=== PATIENT | male | born 1935 | race Caucasian/White ===

== ENCOUNTER 2016-11-08 07:00 | Inpatient (IN) | payer MEDICARE, OTHER ==
[~2016-11-08] VITALS: Ht 180.3 cm; Wt 84.5 kg
[~2016-11-08 07:00] MED LIST: AMLO1TAB12; CRES10; FENO145T25; NARCO; NEURONTIN PO
[2016-11-29 08:43] VITALS: BMI 26.1
[2016-11-30] VITALS (29 sets, daily range): BP systolic 111–154; BP diastolic 55–76; PULSE 43–95; RESP 13–20; Ht 180.3 cm; Wt 84.5 kg
[2016-11-30] MEDS ORDERED: HIP PAIN COCKTAIL VANCO INJ SCH ×14 (05:30→07:00)
[2016-11-30] MEDS ORDERED: ATOR20TA38 PO (05:38)
[2016-11-30] MEDS ORDERED: DUR75P TD (05:38)
[2016-11-30] MEDS ORDERED: ZOLP5TAB PO (05:38)
[2016-11-30] MEDS ORDERED: VALS160T20 PO (05:38)
[2016-11-30] MEDS ORDERED: LACTATED RINGER'S 1,000 ML IV* SCH (06:00)
[2016-11-30] MEDS ORDERED: ACETAMINOPHEN 1000MG/100ML IV 100 ML IVPB ONE (06:00)
[2016-11-30] MEDS ORDERED: CELECOXIB 200 MG CAP PO ONE (06:00)
[2016-11-30] MEDS ORDERED: oxyCODONE (CR) 10 MG TAB [oxyCONTIN] PO ONE (06:00)
[2016-11-30] MEDS ORDERED: ONDANSETRON 4 MG INJ IV ONE (06:00)
[2016-11-30] MEDS ORDERED: DEXAMETHASONE 4 MG/ML 1 ML INJ IV ONE (06:00)
[2016-11-30] MEDS ORDERED: LANSOPRAZOLE 30 MG CAP PO ONE (06:00)
[2016-11-30] MEDS ORDERED: VANCOMYCIN 1 GM (PMX) 250 ML IVPB ONE (06:00)
[2016-11-30] MEDS ORDERED: TRANEXAMIC ACID IVPB ONE (06:00)
[2016-11-30] MEDS ORDERED: SOD CHLORIDE 0.9% IVPB ONE (06:00)
[2016-11-30] MEDS ORDERED: LIDOCAINE 2% (SDV) 5 ML INJ ONE (06:15)
[2016-11-30] MEDS ORDERED: NEOSTIGMINE 3 MG/3 ML SYRINGE ONE (06:15)
[2016-11-30] MEDS ORDERED: ROCURONIUM 50 MG INJ ONE (06:15)
[2016-11-30] MEDS ORDERED: GLYCOPYRROLATE 0.4 MG INJ ONE (06:15)
[2016-11-30] MEDS ORDERED: PROPOFOL 20 ML ONE (06:15)
[2016-11-30] MEDS ORDERED: MIDAZOLAM 1 MG/ML 2 ML INJ ONE (06:16)
[2016-11-30] MEDS ORDERED: FENTAnyl 50 MCG/ML VIAL ONE (06:16)
[2016-11-30] MEDS ORDERED: LIDOCAINE 2%/EPI 30 ML INJ ONE (06:19)
[2016-11-30] MEDS ORDERED: FENTAnyl 50 MCG/ML VIAL IV PRN ×2 (06:30)
[2016-11-30] MEDS ORDERED: LABETALOL HCL 20MG INJ IV PRN (06:30)
[2016-11-30] MEDS ORDERED: OXYCODONE/ACETAMINOPHEN (5/325) TAB PO PRN ×2 (06:30)
[2016-11-30] MEDS ORDERED: MIDAZOLAM 1 MG/ML 2 ML INJ IV PRN (06:30)
[2016-11-30] MEDS ORDERED: morphine (1 MG/ML) 10ML SYRINGE IV PRN ×3 (06:30)
[2016-11-30] MEDS ORDERED: MEPERIDINE 25 MG INJ IV PRN (06:30)
[2016-11-30] MEDS ORDERED: HYDROmorphONE (0.2 MG/ML) 10ML SYG IV PRN ×3 (06:30)
[2016-11-30] MEDS ORDERED: ONDANSETRON 4 MG INJ IV PRN (06:30)
[2016-11-30] MEDS ORDERED: ATROPINE 1 MG/10 ML SYRINGE IV PRN (06:30)
[2016-11-30] MEDS ORDERED: DIPHENHYDRAMINE 50 MG INJ IV PRN (06:30)
[2016-11-30] MEDS ORDERED: EPHEDrine SULFATE 50 MG/5 ML SYG IV PRN (06:30)
[2016-11-30] MEDS ORDERED: hydrALAzine 20 MG INJ IV PRN (06:30)
[2016-11-30] MEDS ORDERED: BACITRACIN 50000 UNITS INJ ONE (06:41)
[2016-11-30] MEDS ORDERED: TOBRAMYCIN 1.2 GM POWDER ONE (06:48)
[2016-11-30] MEDS ORDERED: BUPIVACAINE 0.25%/EPI (SDV) 30 ML INJ ONE (06:48)
[2016-11-30] MEDS ORDERED: ROPIVACAINE 0.2% 100ML BAG ONE (06:48)
[2016-11-30] MEDS ORDERED: POLYMYXIN B 500000 UNIT INJ ONE (06:48)
[2016-11-30] MEDS ORDERED: VANCOMYCIN 1 GM INJ ONE (06:49)
[2016-11-30] MEDS ORDERED: TRANEXAMIC ACID IRR SCH ×2 (07:00)
[2016-11-30] MEDS ORDERED: SOD CHLORIDE 0.9% IRR SCH ×2 (07:00)
[2016-11-30] MEDS ORDERED: SUCCINYLCHOLINE CHLORIDE 100 MG/5 ML SYG IV ONE (07:00)
[2016-11-30] MEDS ORDERED: DEXAMETHASONE 4 MG/ML 1 ML INJ ONE (07:12)
[2016-11-30] MEDS ORDERED: ONDANSETRON 4 MG INJ ONE (07:13)
--- NOTE | 2016-11-30 07:44 | HPN ---
Date/Time of Note Date/Time of Note DATE: 11/30/16 TIME: 07:43 Interval H&P Admission Note Pt. seen H&P reviewed: No system changes AZEEM QUINN PA-C Nov 30, 2016 07:44
[2016-11-30] MEDS ORDERED: EPHEDrine SULFATE 50 MG/5 ML SYG ONE (07:46)
[2016-11-30] MEDS ORDERED: FUROSEMIDE 20 MG INJ ONE (08:09)
[2016-11-30] MEDS ORDERED: hydrALAzine 20 MG INJ ONE (08:13)
[2016-11-30] MEDS ORDERED: FLUMAZENIL 0.5 MG INJ ONE (09:07)
[2016-11-30] MEDS: DEXTROSE 5%-LR 1,000 ML IV SCH ×3 (09:22→21:52)
[2016-11-30] MEDS ORDERED: BETHANECHOL 25 MG TAB PO PRN (09:30)
[2016-11-30] MEDS ORDERED: NALOXONE (0.4 MG/ML) INJ IV PRN (09:30)
[2016-11-30] MEDS ORDERED: MAGNESIUM HYDROXIDE 30ML CUP PO PRN (09:30)
[2016-11-30] MEDS ORDERED: NA PHOSPHATE/BIPHOS 133 ML ENEMA PR PRN (09:30)
[2016-11-30] MEDS ORDERED: BISACODYL 10 MG SUPP PR PRN (09:30)
[2016-11-30] MEDS ORDERED: ASPIRIN (EC) 325 MG TAB PO ONE (09:30)
[2016-11-30] MEDS: ONDANSETRON 4 MG INJ IV SCH ×3 (09:30→20:55)
[2016-11-30] MEDS ORDERED: NACL 0.9% 3 ML SYG IV SCH (09:30)
[2016-11-30] MEDS ORDERED: HYDROmorphONE 0.2 MG/ML PCA IV PRN (09:30)
[2016-11-30] MEDS ORDERED: DOCUSATE SODIUM 100 MG CAP PO ONE (09:30)
[2016-11-30] MEDS ORDERED: MEPERIDINE 10 MG/ML 30 ML PCA IV PRN (09:30)
[2016-11-30 09:41] LABS: SYNOVIAL FLUID CLARITY Bloody; SYNOVIAL FLUID COLOR Red; SYNOVIAL FLUID WBC 849 /cmm (0-150)
[2016-11-30] MEDS: CEFAZOLIN 1 GM/50 ML (PMX) 50 ML IVPB SCH ×2 (09:49→18:35)
[2016-11-30 10:02] LABS: LYMPHOCYTES,SYNOVIAL FLUID 47; NEUTROPHILS,SYNOVIAL FLUID 40 % (0-25)
--- NOTE | 2016-11-30 10:30 | RADRPT ---
PROCEDURE: XR Right Hip. CLINICAL INDICATION: POST OP TECHNIQUE: AP few of the right hip. COMPARISON: 03/08/2016 FINDINGS: Status post right total hip arthroplasty revision. Anatomic alignment of femoral acetabular prosthe tic components. No evidence of fracture, hardware failure, loosening. Surgical drain in place. Holder ture ant overlie the lateral aspect of right hip soft tissues. Surgical clips in the inguinal r egion. IMPRESSION: Intact right total hip arthroplasty with anatomic alignment. RPTAT:AAJJ Physician Frances Date Time Electronically viewed and signed by Physician Frances on 11/30/2016 10:29 DEREK/
[2016-11-30 10:34] LABS: ADD UMIC NO; URINE BILIRUBIN (Dip) NEGATIVE (NEGATIVE); URINE BLOOD (Dip) NEGATIVE (NEGATIVE); URINE COLOR LT. YELLOW (YELLOW); URINE GLUCOSE (Dip) NEGATIVE (NEGATIVE); URINE KETONES (Dip) NEGATIVE (NEGATIVE); URINE LEUKOCYTE ESTERASE (Dip) NEGATIVE (NEGATIVE); URINE NITRITE (Dip) NEGATIVE (NEGATIVE); URINE TOTAL PROTEIN (Dip) NEGATIVE (NEGATIVE); URINE UROBILINOGEN (Dip) 0.2 E.U./dL (0.1-1.0)
--- NOTE | 2016-11-30 11:10 | OPR ---
DATE OF OPERATION: 11/30/2016 SURGEON: Dennys Layne MD SLITTER AND REWINDER MACHINE OPERATOR: Davin Ramos PA-C ANESTHESIOLOGIST: Dr. Reece. 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 OPERATION PERFORMED: 1. Removal of acetabular liner and femoral head. 2. Installation of a captured socket acetabulum and a new femoral head. FINDINGS AT SURGERY: The acetabular component was found to be in good condition with minimal wear. The acetabular component was found to have erosion of the posterior lip where the hip was thought t o be dislocating. There was no sign of infection. Fluid was aspirated from the hip before the join t was opened and sent for cell count, culture and sensitivity. The alignment of the socket was bebo ured and found to be with good alignment with 40 degrees of abduction and 20 degrees of anteversion. The acetabular metal shell and the femoral component was found to be well attached to the bone and no sign of micromotion could be demonstrated. DESCRIPTION OF PROCEDURE: Under general plus epidural anesthetic, the patient was placed on his lef t side with an axillary pad under the end of the chest and the left peroneal nerve was protectively padded. The right leg, thigh and lower abdomen were prepared and draped in the usual sterile fashio n. An incision made over the lateral aspect of the right thigh in the line of previous surgical sca r. The incision was deepened through the deep fascia to expose the lateral aspect of the femur with its attached muscles. Note that there was no posterior capsular attachment left. The hip was disl ocated. The femoral head was removed. The bone metal interfaces on the femoral side was exposed an d every attempt was made to ensure that the component was well attached to the bone. The acetabulum was now exposed by suitable retraction. The plastic acetabular liner was removed. A neutral trial acetabular component was installed and the hip was put through a full range of motion and was found to dislocate posteriorly on forced flexion. The neutral liner was removed and a liner with a 10-degree lip was installed. The hip was now found to be completely stable. The 10-degree lip was therefore selected. The wound was frequently irrigated throughout the procedure with normal saline containing antibiotic s with pulsatile lavage. The soft tissues around the hip were injected with a mixture of Naropin, T oradol, morphine and clonidine. The new plastic acetabular component was now installed with its hig h wall in the posterior position. The captured femoral head mechanism was now installed. The hip w as put through a range of motion and was found to be stable. The wound was now closed using interrupted Vicryl in all the deep tissues and ant on the skin. Usual dressings were applied. There were no complications as far as is known. COMPONENT INFORMATION: Component Rn Cardiovascular: [employer] [place], [place]. FEMORAL HEAD SIZE: 32 murmur. FEMORAL NECK SIZE: +5 mm ACETABULAR LINER: + 4 mm with a 10-degree lip. Dictated By: DENNYS SUN/QUYEN Conf#: [id number] DID#: [id number]
[2016-11-30] MEDS ORDERED: morphine 10 MG INJ SC PRN (11:30)
[2016-11-30] MEDS: HYDROCODONE/APAP (10/325) TAB PO PRN ×2 (12:14→20:31)
[2016-11-30] MEDS ORDERED: VALSARTAN 160 MG TAB PO SCH (13:00)
[2016-11-30] MEDS: ACETAMINOPHEN 1000MG/100ML IV 100 ML IVPB SCH ×2 (13:41→20:31)
--- NOTE | 2016-11-30 14:19 | CONS ---
DATE OF ADMISSION: 11/30/2016 DATE OF CONSULTATION: 11/30/2016 TYPE OF CONSULTATION: Postoperative medical. Dear Dr. Layne, Thank you very much for allowing me to see this 81-year-old male who just underwent right hip surger y. HISTORICAL EVENTS: As you well know, this patient did undergo surgery earlier today for recurrent d islocation of his right hip. On the orthopedic floor, he is comfortable without cough, wheezing, sh ortness of breath, nausea, vomiting, abdominal, or chest pain. PAST MEDICAL HISTORY: Includes 1. Undergoing surgery for dislocation of the right hip in June 2014. 2. Prior lumbar back surgery. 3. History of renal stones. 4. History of colon polyps. 5. Hyperlipidemia. 6. History of aortic stenosis. 7. Hypertension. 8. Benign prostatic hypertrophy. 9. Status post TURP. 10. Known coronary artery disease undergoing angioplasty. 11. Umbilical hernia repair, hiatal hernia repair, cholecystectomy, left hip replacement, left knee replacement, and right knee replacement. FAMILY HISTORY: Positive for cancer. SOCIAL HISTORY: He does not smoke and does not drink alcohol. MEDICATIONS 1. Diovan 160 per day. 2. [place] 10/325 q. 6. 3. Gabapentin 300 mg per day. 4. Crestor 10 mg per day. 5. Lipitor 20 mg per day. PHYSICAL EXAMINATION: GENERAL: [place] male in no acute distress. VITAL SIGNS: BP 122/80, pulse 70, respirations 20, and he was afebrile. EYES: Extraocular muscles were full. NOSE, MOUTH, AND THROAT: Normal. NECK: Supple. There was no jugular venous distention, thyroid enlargement, or adenopathy. Carotid s 2+. LUNGS: Clear. HEART: Rhythm regular, I/ systolic murmur. No third or fourth sound. ABDOMEN: Nontender. Liver and spleen were not palpable. No masses or tenderness were noted. EXTREMITIES: No edema. No calf tenderness. NEUROLOGIC: No lateralizing motor weakness. IMPRESSION: 1. Stable postop right hip surgery. 2. History of hypertension. We will continue ARB and monitor BP throughout. 3. Hyperlipidemia with known coronary artery disease. We will be alert to signs and symptoms of co ronary insufficiency and continue with statin. 4. We will evaluate daily for signs and symptoms of thromboembolic disease despite appropriate VTE prophylaxis. Dictated By: CHASITY FRY MD MR/QUYEN Conf#: [id number] [facility]#: [id number]
[2016-11-30] MEDS ORDERED: DIPHENHYDRAMINE 50 MG INJ IM PRN (15:00)
[2016-11-30] MEDS: ATORVASTATIN 20 MG TAB PO SCH (20:30)
[2016-11-30] MEDS: VALSARTAN 160 MG TAB PO SCH (20:55)
[2016-12-01] MEDS: CEFAZOLIN 1 GM/50 ML (PMX) 50 ML IVPB SCH (00:31)
[2016-12-01 00:36] VITALS: BP 134/69; PULSE 78; RESP 18
[2016-12-01] MEDS: ONDANSETRON 4 MG INJ IV SCH (03:30)
[2016-12-01] MEDS: ACETAMINOPHEN 1000MG/100ML IV 100 ML IVPB SCH ×3 (05:16→19:57)
[2016-12-01] MEDS: PANTOPRAZOLE (EC) 40 MG TAB PO SCH (05:16)
[2016-12-01] MEDS: HYDROCODONE/APAP (10/325) TAB PO PRN ×2 (05:18→09:11)
[2016-12-01] MEDS: DEXTROSE 5%-LR 1,000 ML IV SCH ×2 (05:23→19:57)
[2016-12-01 05:32] LABS: HEMATOCRIT 32.1 % (42.0-52.0); HEMOGLOBIN 10.9 g/dl (14.0-18.0); LYMPHOCYTES # 1.3 10^3/ul (0.8-2.9); LYMPHOCYTES % 11.3 % (15.0-51.0); MEAN CORPUSCULAR HEMOGLOBIN 34.6 pg (29.0-33.0); MEAN CORPUSCULAR HGB CONC 33.9 g/dl (32.0-37.0); MEAN CORPUSCULAR VOLUME 101.8 fl (82.0-101.0); MONOCYTE # 0.6 10^3/ul (0.3-0.9); MONOCYTES % 5.4 % (0.0-11.0); NEUTROPHIL # 9.3 10^3/ul (1.6-7.5); NEUTROPHILS % 83.3 % (39.0-77.0); PLATELET COUNT 200 10^3/UL (140-440); RED BLOOD COUNT 3.15 10^6/ul (4.70-6.10); UNCORRECTED WBC 11.2 10^3/ul (4.8-10.8); WHITE BLOOD COUNT 11.2 10^3/ul (4.8-10.8)
[2016-12-01 06:00] LABS: POTASSIUM 4.8 mmol/L (3.5-5.1)
[2016-12-01] MEDS ORDERED: BUPIVACAINE 0.25%/EPI (SDV) 30 ML INJ INJ PRN (06:00)
[2016-12-01] MEDS ORDERED: KETOROLAC 30 MG INJ INJ PRN (06:00)
[2016-12-01 06:02] LABS: CREATININE 1.26 mg/dl (0.61-1.24)
[2016-12-01 06:03] LABS: PHOSPHORUS 3.7 mg/dl (2.5-4.9)
[2016-12-01 06:04] LABS: CALCIUM 8.1 mg/dl (8.4-10.2); MAGNESIUM 1.4 mg/dl (1.7-2.5)
[2016-12-01] MEDS: DEXAMETHASONE 4 MG/ML 1 ML INJ IV SCH (06:16)
[2016-12-01 06:19] LABS: CONDITION 1; LH ANALYZER COMMENTS 1
[2016-12-01 06:23] VITALS: BP 172/90; PULSE 81; RESP 18
[2016-12-01] MEDS: VALSARTAN 160 MG TAB PO SCH ×2 (07:10→09:11)
[2016-12-01 07:43] VITALS: BP 167/82; RESP 18
[2016-12-01] MEDS ORDERED: oxyCODONE 5 MG TAB PO PRN (09:00)
[2016-12-01] MEDS: SENNA/DOCUSATE NA (8.6MG/50MG) TAB PO PRN (09:10)
[2016-12-01] MEDS: CELECOXIB 200 MG CAP PO SCH ×2 (09:10→19:53)
[2016-12-01] MEDS: ASPIRIN (EC) 325 MG TAB PO SCH ×2 (09:10→19:52)
[2016-12-01] MEDS: DOCUSATE SODIUM 100 MG CAP PO SCH ×2 (09:10→19:52)
[2016-12-01] MEDS: FERROUS FUMARATE (SR) TAB PO SCH ×2 (09:10→19:52)
[2016-12-01] MEDS: FENOFIBRATE 145 MG TAB PO SCH (09:12)
--- NOTE | 2016-12-01 09:38 | PN ---
Date/Time of Note Date/Time of Note DATE: 12/01/16 TIME: 09:33 Assessment/Plan VTE Prophylaxis VTE Prophylaxis Intervention: ambulation, SCD's Lines/Catheters IV Catheter Type (from Nrsg): Peripheral IV Assessment/Plan Assessment/Plan Continue aspirin 325 mg for DVT prophylaxis Pain cocktail given today Drains discontinued today Pain medication as needed Continue inpatient physical therapy. Dress change performed today Continued monitoring by wound care for superficial skin abrasions to the right inguinal fold. Currently healing well with no signs of infection. All patient's questions have been answered today. Subjective 24 Hr Interval Summary 81-year-old male postop day 1 right posterior hip revision. Since the surgery, patient denies any pain complaints. Currently patient is doing well. Patient was up and ambulating yesterday as he was able to walk to the nurses station. Denies any shortness of breath, difficulty breathing. Denies any calf pain. Patient did suffer from superficial wound to the right sided inguinal fold in which she is currently being monitored by wound care. No complications with skin abrasions to the inguinal fold. No complaints to the right hip today. Pain is well controlled with pain cocktail as well as as needed pain medication. Patient is able to get out of bed with assistance with a walker. Constitutional: no complaints Pain Control: well controlled Exam/Review of Systems Vital Signs Vitals Vital Signs Date Time Temp Pulse Resp B/P Pulse Ox O2 Delivery O2 Flow Rate FiO2 12/01/16 07:43 98.0 74 18 167/82 93 12/01/16 06:23 Room Air 11/30/16 16:00 2.0 Intake and Output 11/30/16 11/30/16 12/01/16 15:00 23:00 07:00 Intake Total 1200 ml 1070 ml 2160 ml Output Total 360 ml 1500 ml 70 ml Balance 840 ml -430 ml 2090 ml Exam Free Text/Dictation Posterior wound of the right hip is clean dry and intact. [place] intact. No tenderness to palpation. No significant erythema or effusions/swelling. Drain site intact with no complications. Drain in place. Patient denies any calf pain. Patient able to flex the hip up to 45. Results Result Diagram: 12/01/16 0425 12/01/16 0425 AZEEM QUINN PA-C Dec 01, 2016 09:38
--- NOTE | 2016-12-01 12:25 | CONS ---
Date/Time of Note Date/Time of Note DATE: 12/01/16 TIME: 12:23 Assessment/Plan Assessment/Plan Additional Assessment/Plan 1. S/P right hip replacement, stable 2. Low mag, will replete 3. Aortic stenosis, asx Consultation Date/Type/Reason Admit Date/Time Nov 30, 2016 at 05:34 Initial Consult Date Detailed Summary Respiratory: No shortness of breath Cardiovascular: No chest pain, No lightheadedness Gastrointestinal: no complaints Genitourinary: no complaints Musculoskeletal: bone/joint pain (mild right hip pain) Exam/Review of Systems Vital Signs Vitals Vital Signs Date Time Temp Pulse Resp B/P Pulse Ox O2 Delivery O2 Flow Rate FiO2 12/01/16 08:10 Nasal Cannula 2.0 12/01/16 07:43 98.0 74 18 167/82 93 Intake and Output 11/30/16 11/30/16 12/01/16 15:00 23:00 07:00 Intake Total 1200 ml 1070 ml 2160 ml Output Total 360 ml 1500 ml 70 ml Balance 840 ml -430 ml 2090 ml Exam Neck: No jvd Respiratory: clear to auscultation Cardiovascular: murmurs/extra sounds (1-2/6 systolic m), regular rate and rhythm Gastrointestinal: soft Extremities: No edema (and no calf tend bilat) Skin: other (echymoses right neck, not warm or tender) Results Result Diagram: 12/01/165 12/01/165 Results 24 hrs Laboratory Tests Test 12/01/16 04:25 Anion Gap 14 Basophils # 0.0 Basophils % 0.0 Blood Morphology Comment Blood Urea Nitrogen 33 H Calcium Level 8.1 L Carbon Dioxide Level 24 Chloride Level 104 Creatinine 1.26 H Eosinophils # 0.0 Eosinophils % 0.0 Glucose Level 134 Hematocrit 32.1 L Hemoglobin 10.9 L Lymphocytes # 1.3 Lymphocytes % 11.3 L Magnesium Level 1.4 L Mean Corpuscular Hemoglobin 34.6 H Mean Corpuscular Hemoglobin Concent 33.9 Mean Corpuscular Volume 101.8 H Mean Platelet Volume 9.0 Monocytes # 0.6 Monocytes % 5.4 Neutrophils # 9.3 H Neutrophils % 83.3 H Nucleated Red Blood Cells # 0.0 Nucleated Red Blood Cells % 0.0 Phosphorus Level 3.7 Platelet Count 200 Potassium Level 4.8 Red Blood Count 3.15 L Red Cell Distribution Width 14.0 Sodium Level 137 White Blood Count 11.2 H Medications Medications Current Medications Dextrose/Lactated Ringer's (D5-Lr) 1,000 ml @ 80 mls/hr [id number] IV Last administered on 12/01/16 05:23; Admin Dose 80 MLS/HR; Start 11/30/16 at 09:22 Oxycodone HCl (Roxicodone) 20 mg Q3H PRN PO PAIN LEVEL 8-10; Start 12/01/16 at 09:00 Oxycodone HCl 10 mg 10 mg Q3H PRN PO PAIN LEVEL 4-7; Start 12/01/16 at 09:00 Acetaminophen (Ofirmev 1000mg/ 100ml Iv) 100 ml @ 400 mls/hr Q8H IVPB Last administered on 12/01/16 05:16; Admin Dose 400 MLS/HR; Start 11/30/16 at 14:00 ; Stop 12/02/16 at 06:14 Zolpidem Tartrate (Ambien) 5 mg HS PRN PO INSOMNIA; Start 11/30/16 at 09:30 Aspirin (Ecotrin) 325 mg BID PO Last administered on 12/01/16 09:10; Admin Dose 325 MG; Start 12/01/16 at 09:00 Celecoxib (Celebrex) 200 mg BID PO Last administered on 12/01/16 09:10; Admin Dose 200 MG; Start 12/01/16 at 09:00 Dexamethasone (Decadron) 4 mg DAILY@07 IV Last administered on 12/01/16 06:16 ; Admin Dose 4 MG; Start 12/01/16 at 07:00; Stop 12/04/16 at 06:59 Pantoprazole (Protonix Tab) 40 mg DAILY@06 PO Last administered on 12/01/16 05 :16; Admin Dose 40 MG; Start 12/01/16 at 06:00 Docusate Sodium/ Ferrous Fumarate (Blank-Sequels) 1 tab BID PO Last administered on 12/01/16 09:10; Admin Dose 1 TAB; Start 12/01/16 at 09:00 Docusate Sodium (Colace) 200 mg BID PO Last administered on 12/01/16 09:10; Admin Dose 200 MG; Start 12/01/16 at 09:00; Stop 12/03/16 at 21:01 Simethicone (Mylicon) 80 mg TID PRN PO DISTENSION/GAS/BLOATING Last administered on 11/30/16 20:31; Admin Dose 80 MG; Start 11/30/16 at 09:30 Senna/Docusate Sodium (Senokot-S) 2 tab BID PRN PO CONSTIPATION Last administered on 12/01/16 09:10; Admin Dose 2 TAB; Start 11/30/16 at 09:30 Magnesium Hydroxide (Milk Of Mag) 30 ml HS PRN PO CONSTIPATION; Start 11/30/16 at 09:30 Bisacodyl (Dulcolax Supp) 10 mg DAILY PRN [place] CONSTIPATION; Start 11/30/16 at 09 :30 Sodium Biphosphate/ Sodium Phosphate (Fleet Enema) 133 ml DAILY PRN [place] CONSTIPATION; Start 11/30/16 at 09:30 Diphenhydramine HCl (Benadryl) 25 mg Q4H PRN IM ITCHING OR RASH; Start at 15:00 Ketorolac Tromethamine (Toradol) 30 mg DAILY@06 PRN INJ ADMINSTER BY SURGEON ONLY; Start 12/01/16 at 06:00; Stop 12/05/16 at 05:59 Bupivacaine HCl/ Epinephrine Bitart ([place] 0.25%/ Epi (Sdv) 30 ml) 20 ml DAILY@06 PRN INJ ADMINSTER BY SURGEON ONLY; Start 12/01/16 at 06:00; Stop 12/05 at 05:59 Naloxone HCl (Narcan) 0.2 mg Q2M PRN IV DECREASED REPIRATORY RATE; Start at 09:30 Morphine Sulfate (morphine) 4 mg Q6 PRN SC MODERATE PAIN LEVEL 4-6; Start 11/30 at 11:30 Acetaminophen/ Hydrocodone Bitart ([place] (10/325)) 1 tab Q4H PRN PO PAIN Last administered on 12/01/16 09:11; Admin Dose 1 TAB; Start 11/30/16 at 11:30 Atorvastatin Calcium (Lipitor) 20 mg QHS PO Last administered on 11/30/16 20: 30; Admin Dose 20 MG; Start 11/30/16 at 21:00 Fenofibrate (Tricor) 145 mg DAILY PO Last administered on 12/01/16 09:12; Admin Dose 145 MG; Start 12/01/16 at 09:00 Valsartan (Diovan) 160 mg DAILY PO Last administered on 12/01/16 09:11; Admin Dose 160 MG; Start 11/30/16 at 21:00 CHASITY FRY MD Dec 01, 2016 12:25
[2016-12-01] MEDS ORDERED: MAGNESIUM SULFATE 3 GM in SOD CHLORIDE 0.9% 100 ML IVPB ONE (12:30)
[2016-12-01] MEDS: ATORVASTATIN 20 MG TAB PO SCH (19:52)
[2016-12-01] MEDS: oxyCODONE 5 MG TAB PO PRN (19:53)
[2016-12-01 20:30] VITALS: BP 169/78; RESP 18
[2016-12-01 20:32] VITALS: BP 137/76; PULSE 81; RESP 18
[2016-12-01] MEDS: ZOLPIDEM 5 MG TAB PO PRN (22:52)
[2016-12-02] VITALS (9 sets, daily range): BP systolic 92–190; BP diastolic 42–93; PULSE 41–97; RESP 18–20
[2016-12-02] MEDS: oxyCODONE 5 MG TAB PO PRN ×3 (01:14→20:57)
[2016-12-02] MEDS: ACETAMINOPHEN 1000MG/100ML IV 100 ML IVPB SCH (05:38)
[2016-12-02] MEDS: PANTOPRAZOLE (EC) 40 MG TAB PO SCH (05:38)
[2016-12-02] MEDS: DEXAMETHASONE 4 MG/ML 1 ML INJ IV SCH (05:38)
[2016-12-02 05:47] LABS: BASOPHILS % 0.2 % (0.0-2.0); EOSINOPHILS % 0.2 % (0.0-7.0); HEMATOCRIT 32.2 % (42.0-52.0); HEMOGLOBIN 10.8 g/dl (14.0-18.0); LYMPHOCYTES # 2.5 10^3/ul (0.8-2.9); LYMPHOCYTES % 21.9 % (15.0-51.0); MEAN CORPUSCULAR HEMOGLOBIN 34.3 pg (29.0-33.0); MEAN CORPUSCULAR HGB CONC 33.5 g/dl (32.0-37.0); MEAN CORPUSCULAR VOLUME 102.2 fl (82.0-101.0); MEAN PLATELET VOLUME 8.8 fl (7.4-10.4); MONOCYTE # 0.9 10^3/ul (0.3-0.9); MONOCYTES % 7.9 % (0.0-11.0); NEUTROPHILS % 69.8 % (39.0-77.0); PLATELET COUNT 203 10^3/UL (140-440); RED BLOOD COUNT 3.15 10^6/ul (4.70-6.10); RED CELL DISTRIBUTION WIDTH 13.9 % (11.5-14.5); UNCORRECTED WBC 11.5 10^3/ul (4.8-10.8); WHITE BLOOD COUNT 11.5 10^3/ul (4.8-10.8)
[2016-12-02 06:06] LABS: CONDITION 1; LH ANALYZER COMMENTS 1
[2016-12-02 06:15] LABS: POTASSIUM 4.6 mmol/L (3.5-5.1)
[2016-12-02 06:17] LABS: CREATININE 1.35 mg/dl (0.61-1.24)
[2016-12-02 06:18] LABS: CALCIUM 8.3 mg/dl (8.4-10.2); PHOSPHORUS 3.2 mg/dl (2.5-4.9)
[2016-12-02 06:19] LABS: MAGNESIUM 2.1 mg/dl (1.7-2.5)
--- NOTE | 2016-12-02 08:05 | PN ---
Date/Time of Note Date/Time of Note DATE: 12/02/16 TIME: 07:54 Assessment/Plan VTE Prophylaxis VTE Prophylaxis Intervention: ambulation, SCD's, other (ASA 325mg BID) Lines/Catheters IV Catheter Type (from Nrsg): Peripheral IV Simpson in Place (from Nrsg): No (SIMPSON WAS DCD THIS MRONING. PT IS DUE TO VOID) Assessment/Plan Assessment/Plan Patient continues to do well with no pain complaints status post posterior right total hip revision surgery on 11/30/2016. Continue aspirin 325 mg for DVT prophylaxis Pain cocktail given today. After pain cocktail given, pain cocktail port was removed. Dress change applied today. Patient is cleared from orthopedic standpoint to return home. Will communicate this to nurse. Spoke with Dr. Choi and patient will be transferred to tele floor due to unstable heart rate and unbalanced BP with activity. Tegaderm for patient to bring home when discharged given to patient today Hip precautions discussed Pain meds prn Subjective 24 Hr Interval Summary 81-year-old male postop day 2 of right total hip revision the posterior route. In regards to the right hip, patient denies any pain status post surgery. Patient has been able to get out of bed with assistance using a walker. He has been walking with front wheeled walker throughout the hallway. Denies any pain at wound site. No noticed drainage or discharge to the wound. Patient has no complaints in regards to the right hip. Patient has had low pulse of around 40 overnight. Patient is being monitored by Dr. Choi who will be ordering EKG today for rule out of any acute cardiac injuries. Patient plans to return home upon discharge with follow-up by home health. Patient would like to go home today if cleared. Feeding: advancing diet Pain Control: well controlled Exam/Review of Systems Vital Signs Vitals Vital Signs Date Time Temp Pulse Resp B/P Pulse Ox O2 Delivery O2 Flow Rate FiO2 12/02/16 04:57 41 18 136/65 94 Room Air 12/01/16 20:30 98.2 12/01/16 08:10 2.0 Intake and Output 12/01/16 12/01/16 12/02/16 15:00 23:00 07:00 Intake Total 100 ml 1866 ml 1880 ml Output Total 350 ml Balance 100 ml 1516 ml 1880 ml Exam Free Text/Dictation Wound site to the posterior right hip is clean dry and intact. No tenderness to palpation. Drain site is clean dry and intact as well. No discharge. Normal sensory examination to light touch throughout the right lower extremity. Negative calf pain. Negative Homans sign. Toes freely movable. 2+ dorsal pedis as well as posterior tibialis. Patient is able to flex the hip up to 40- 50. No pain with range of motion. Results Result Diagram: 12/02/16 0415 12/02/16 0445 AZEEM QUINN PA-C Dec 02, 2016 08:04
--- NOTE | 2016-12-02 08:10 | PDOCDIS ---
Discharge Instructions CONDITION Patient Condition: Stable HOME CARE INSTRUCTIONS: Diet Instructions: RegularSpecial Diet: REGULAR DIET ACTIVITY: Activity Restrictions: Avoid heavy lifting No Sexual Activity Do not Drive Do not operate Machinery Avoid Heavy Housework Keep Limb Elevated Weight Bearing (Weightbearing as tolerated with assisted ambulatory device/ front wheeled walker) Bathing Restrictions: Shower (With Tegaderm dressing over wound sites until ant removed) FOLLOW UP/APPOINTMENTS Appointments Scheduled 3 week f/u in outpatient clinic the patient made aware that he may return sooner to clinic given any complications. Continue DVT prophylaxis with aspirin 325 mg twice daily. Pain medications as needed in regards to [place] 10/325 mg. Celebrex 100 mg twice daily 6 weeks. AZEEM QUINN PA-C Dec 02, 2016 08:10
[2016-12-02] MEDS ORDERED: ASPI325T32 PO (08:12)
--- NOTE | 2016-12-02 08:41 | CONS ---
Date/Time of Note Date/Time of Note DATE: 12/02/16 TIME: 08:38 Assessment/Plan Assessment/Plan Additional Assessment/Plan 1. S/P right hip replacement 2. Mild vol overload/?chf, cxr ordered and BNP, cardiol to see 3. Hx Aortic valve dz and ashd, echo ordered and troponin 4. Arrhythmia noted, needs to be monitored-transfer to tele, rev with ortho Consultation Date/Type/Reason Admit Date/Time Nov 30, 2016 at 05:34 24 HR Interval Summary Free Text/Dictation I was called last night as HR was as low as 40+ and >135--he was asx Detailed Summary Respiratory: No cough, No shortness of breath Cardiovascular: No chest pain, No orthopenea Gastrointestinal: no complaints Musculoskeletal: bone/joint pain (mild right hip pain) Exam/Review of Systems Vital Signs Vitals Vital Signs Date Time Temp Pulse Resp B/P Pulse Ox O2 Delivery O2 Flow Rate FiO2 12/02/16 04:57 41 18 136/65 94 Room Air 12/01/16 20:30 98.2 12/01/16 08:10 2.0 Intake and Output 12/01/16 12/01/16 12/02/16 15:00 23:00 07:00 Intake Total 100 ml 1866 ml 1880 ml Output Total 350 ml Balance 100 ml 1516 ml 1880 ml Exam Neck: No jvd Respiratory: diminished breath sounds Cardiovascular: irregular rhythm Gastrointestinal: soft Extremities: No edema (1+ pedal and 1+ sacral edema) Results Result Diagram: 12/02/16 0415 12/02/16 0445 Results 24 hrs Laboratory Tests Test 12/02/16 04:15 12/02/16 04:45 Basophils # 0.0 Basophils % 0.2 Blood Morphology Comment Eosinophils # 0.0 Eosinophils % 0.2 Hematocrit 32.2 L Hemoglobin 10.8 L Lymphocytes # 2.5 Lymphocytes % 21.9 Mean Corpuscular Hemoglobin 34.3 H Mean Corpuscular Hemoglobin Concent 33.5 Mean Corpuscular Volume 102.2 H Mean Platelet Volume 8.8 Monocytes # 0.9 Monocytes % 7.9 Neutrophils # 8.0 H Neutrophils % 69.8 Nucleated Red Blood Cells # 0.0 Nucleated Red Blood Cells % 0.0 Platelet Count 203 Red Blood Count 3.15 L Red Cell Distribution Width 13.9 White Blood Count 11.5 H Anion Gap 14 Blood Urea Nitrogen 33 H Calcium Level 8.3 L Carbon Dioxide Level 25 Chloride Level 107 Creatinine 1.35 H Glucose Level 101 Magnesium Level 2.1 Phosphorus Level 3.2 Potassium Level 4.6 Sodium Level 141 Thyroid Stimulating Hormone (TSH) 0.599 Medications Medications Current Medications Dextrose/Lactated Ringer's (D5-Lr) 1,000 ml @ 80 mls/hr [id number] IV Last administered on 12/01/16 19:57; Admin Dose 80 MLS/HR; Start 11/30/16 at 09:22 Oxycodone HCl (Roxicodone) 20 mg Q3H PRN PO PAIN LEVEL 8-10; Start 12/01/16 at 09:00 Oxycodone HCl (Roxicodone) 10 mg Q3H PRN PO PAIN LEVEL 4-7 Last administered on 12/02/16 01:14; Admin Dose 10 MG; Start 12/01/16 at 09:00 Zolpidem Tartrate (Ambien) 5 mg HS PRN PO INSOMNIA Last administered on 22:52; Admin Dose 5 MG; Start 11/30/16 at 09:30 Aspirin (Ecotrin) 325 mg BID PO Last administered on 12/01/16 19:52; Admin Dose 325 MG; Start 12/01/16 at 09:00 Celecoxib (Celebrex) 200 mg BID PO Last administered on 12/01/16 19:53; Admin Dose 200 MG; Start 12/01/16 at 09:00 Dexamethasone (Decadron) 4 mg DAILY@07 IV Last administered on 12/02/16 05:38 ; Admin Dose 4 MG; Start 12/01/16 at 07:00; Stop 12/04/16 at 06:59 Pantoprazole (Protonix Tab) 40 mg DAILY@06 PO Last administered on 12/02/16 05 :38; Admin Dose 40 MG; Start 12/01/16 at 06:00 Docusate Sodium/ Ferrous Fumarate (Blank-Sequels) 1 tab BID PO Last administered on 12/01/16 19:52; Admin Dose 1 TAB; Start 12/01/16 at 09:00 Docusate Sodium (Colace) 200 mg BID PO Last administered on 12/01/16 19:52; Admin Dose 100 MG; Start 12/01/16 at 09:00; Stop 12/03/16 at 21:01 Simethicone (Mylicon) 80 mg TID PRN PO DISTENSION/GAS/BLOATING Last administered on 12/01/16 19:52; Admin Dose 80 MG; Start 11/30/16 at 09:30 Senna/Docusate Sodium (Senokot-S) 2 tab BID PRN PO CONSTIPATION Last administered on 12/01/16 09:10; Admin Dose 2 TAB; Start 11/30/16 at 09:30 Magnesium Hydroxide (Milk Of Mag) 30 ml HS PRN PO CONSTIPATION; Start 11/30/16 at 09:30 Bisacodyl (Dulcolax Supp) 10 mg DAILY PRN [place] CONSTIPATION; Start 11/30/16 at 09 :30 Sodium Biphosphate/ Sodium Phosphate (Fleet Enema) 133 ml DAILY PRN [place] CONSTIPATION; Start 11/30/16 at 09:30 Diphenhydramine HCl (Benadryl) 25 mg Q4H PRN IM ITCHING OR RASH; Start at 15:00 Ketorolac Tromethamine (Toradol) 30 mg DAILY@06 PRN INJ ADMINSTER BY SURGEON ONLY; Start 12/01/16 at 06:00; Stop 12/05/16 at 05:59 Bupivacaine HCl/ Epinephrine Bitart ([place] 0.25%/ Epi (Sdv) 30 ml) 20 ml DAILY@06 PRN INJ ADMINSTER BY SURGEON ONLY; Start 12/01/16 at 06:00; Stop 12/05 at 05:59 Naloxone HCl (Narcan) 0.2 mg Q2M PRN IV DECREASED REPIRATORY RATE; Start at 09:30 Morphine Sulfate (morphine) 4 mg Q6 PRN SC MODERATE PAIN LEVEL 4-6; Start 11/30 at 11:30 Acetaminophen/ Hydrocodone Bitart ([place] (10/325)) 1 tab Q4H PRN PO PAIN Last administered on 12/01/16 09:11; Admin Dose 1 TAB; Start 11/30/16 at 11:30 Atorvastatin Calcium (Lipitor) 20 mg QHS PO Last administered on 12/01/16 19: 52; Admin Dose 20 MG; Start 11/30/16 at 21:00 Fenofibrate (Tricor) 145 mg DAILY PO Last administered on 12/01/16 09:12; Admin Dose 145 MG; Start 12/01/16 at 09:00 Valsartan (Diovan) 160 mg DAILY PO Last administered on 12/01/16 09:11; Admin Dose 160 MG; Start 11/30/16 at 21:00 CHASITY FRY MD Dec 02, 2016 08:41
[2016-12-02] MEDS ORDERED: POTASSIUM CHLORIDE (SR) 10 MEQ TAB PO ONE (09:00)
[2016-12-02] MEDS ORDERED: FUROSEMIDE 40 MG INJ IV ONE (09:00)
--- NOTE | 2016-12-02 09:22 | RADRPT ---
PROCEDURE: XR Chest. CLINICAL INDICATION: Arrhythmia.. TECHNIQUE: Single frontal chest x-ray. COMPARISON: None. FINDINGS: The lungs are clear of acute infiltrates, edema, effusions, or masses. There is mild atelectasis in the left costophrenic angle. Calcific atherosclerosis of the aorta is present.. The cardiomediastin al silhouette is unremarkable. The osseous structures are intact. IMPRESSION: No acute cardiopulmonary disease. Mild atelectasis at the left costophrenic angle. RPTAT: JJ .Maycol Medina MD, MD Date Time Electronically viewed and signed by .Maycol Medina MD, MD on 12/02/2016 09:22 .L/
--- NOTE | 2016-12-02 09:38 | CONS ---
Date/Time of Note Date/Time of Note DATE: 12/02/16 TIME: 09:31 Assessment/Plan Assessment/Plan Chief Complaint/Hosp Course Impression: 1- bradycardia- likely actually normal hr but pt with frequent bigeminy and thus hr erroneously reported as low. transferring to tele for further monitoring ringfor further monito 2- tachycardia- not captured on ekg, transfer to tele to monitor 3- h/o of cad s/p PTCA - cont asa/statin 4- h/o of - echo with moderate to severe . keep euvolemic and avoid aggressive tx of hypertension given fixed obstruction, risk for hypotension 5- s/p R hip repair- cleared by ortho for d/c 6 HTN- controlled Recommendations - transfer to tele - echo obtained - d/c clonidine - cont valsartan, if hypertensive can and no real graciela. would add low dose bb - cont asa/statin - keep euvolemic lasix as needed - tsh wnl will follow Problems: Consultation Date/Type/Reason Admit Date/Time Nov 30, 2016 at 05:34 Date of Consultation: Dec 02, 2016 Type of Consultation: Cardiology Reason for Consultation Low HR Referring Provider: CHASITY FRY MD Hx of Present Illness 81 y.o. admitted s/p R hip surgery for dislocation. Pt has done well, ambulating with minimal pain. Per nursing, pt with low hrs in 40s with normal bp asymptomatic.there is report of hrs in 140s as well, though this was not captured. patient asymptomatic. denies cp/sob/palpitation. no dizziness, fainting. no pnd, othopnea. ekg: NSR with rbbb and PVCs, bigeminy at times Constitutional: no complaints Eyes: no complaints ENT: no complaints Respiratory: No cough, No shortness of breath Cardiovascular: No chest pain, No orthopenea Gastrointestinal: no complaints Genitourinary: no complaints Musculoskeletal: bone/joint pain (mild right hip pain) Skin: no complaints Neurologic: no complaints Psychological: no complaints Past Medical History 1. Undergoing surgery for dislocation of the right hip in June 2014. 2. Prior lumbar back surgery. 3. History of renal stones. 4. History of colon polyps. 5. Hyperlipidemia. 6. History of aortic stenosis. 7. Hypertension. 8. Benign prostatic hypertrophy. 9. Status post TURP. 10. Known coronary artery disease undergoing angioplasty. 11. Umbilical hernia repair, hiatal hernia repair, cholecystectomy, left hip replacement, left knee replacement, and right knee replacement. Family History Significant Family History: other (no cad) Social History Alcohol Use: none Smoking Status: Never smoker Drug Use: none Exam/Review of Systems Vital Signs Vitals Vital Signs Date Time Temp Pulse Resp B/P Pulse Ox O2 Delivery O2 Flow Rate FiO2 12/02/16 08:11 98.9 190 20 190/76 98 12/02/16 04:57 Room Air 12/01/16 08:10 2.0 Intake and Output 12/01/16 12/01/16 12/02/16 14:59 22:59 06:59 Intake Total 100 ml 1866 ml 1880 ml Output Total 350 ml Balance 100 ml 1516 ml 1880 ml Exam Constitutional: alert, oriented Psych: nl mood/affect, no complaints Head: atraumatic, normocephalic Eyes: EOMI, nl conjunctiva, nl lids ENMT: nl external ears & nose, nl nasal mucosa & septum Neck: non-tender, supple, No jvd Respiratory: clear to auscultation, normal air movement Cardiovascular: regular rate and rhythm, systolic murmur, No S3, No edema, No irregular rhythm, No jugular venous distention (JVD) Gastrointestinal: non-tender, soft Musculoskeletal: nl extremities to inspection, other (R hip wound c/d/i), No muscle weakness Extremities: normal pulses Neurological: CORPORATE CONSULTANT II-XII intact, nl mental status, nl speech, nl strength Skin: nl turgor Results Result Diagram: 12/02/16 0415 12/02/16 0445 Results 24 hrs Laboratory Tests Test 12/02/16 04:15 12/02/16 04:45 Basophils # 0.0 Basophils % 0.2 Blood Morphology Comment Eosinophils # 0.0 Eosinophils % 0.2 Hematocrit 32.2 L Hemoglobin 10.8 L Lymphocytes # 2.5 Lymphocytes % 21.9 Mean Corpuscular Hemoglobin 34.3 H Mean Corpuscular Hemoglobin Concent 33.5 Mean Corpuscular Volume 102.2 H Mean Platelet Volume 8.8 Monocytes # 0.9 Monocytes % 7.9 Neutrophils # 8.0 H Neutrophils % 69.8 Nucleated Red Blood Cells # 0.0 Nucleated Red Blood Cells % 0.0 Platelet Count 203 Red Blood Count 3.15 L Red Cell Distribution Width 13.9 White Blood Count 11.5 H Anion Gap 14 Blood Urea Nitrogen 33 H Calcium Level 8.3 L Carbon Dioxide Level 25 Chloride Level 107 Creatinine 1.35 H Glucose Level 101 Magnesium Level 2.1 Phosphorus Level 3.2 Potassium Level 4.6 Sodium Level 141 Thyroid Stimulating Hormone (TSH) 0.599 Medications Medications Current Medications Oxycodone HCl (Roxicodone) 20 mg Q3H PRN PO PAIN LEVEL 8-10; Start 12/01/16 at 09:00 Oxycodone HCl (Roxicodone) 10 mg Q3H PRN PO PAIN LEVEL 4-7 Last administered on 12/02/16 01:14; Admin Dose 10 MG; Start 12/01/16 at 09:00 Zolpidem Tartrate (Ambien) 5 mg HS PRN PO INSOMNIA Last administered on 22:52; Admin Dose 5 MG; Start 11/30/16 at 09:30 Aspirin (Ecotrin) 325 mg BID PO Last administered on 12/01/16 19:52; Admin Dose 325 MG; Start 12/01/16 at 09:00 Celecoxib (Celebrex) 200 mg BID PO Last administered on 12/01/16 19:53; Admin Dose 200 MG; Start 12/01/16 at 09:00 Dexamethasone (Decadron) 4 mg DAILY@07 IV Last administered on 12/02/16 05:38 ; Admin Dose 4 MG; Start 12/01/16 at 07:00; Stop 12/04/16 at 06:59 Pantoprazole (Protonix Tab) 40 mg DAILY@06 PO Last administered on 12/02/16 05 :38; Admin Dose 40 MG; Start 12/01/16 at 06:00 Docusate Sodium/ Ferrous Fumarate (Blank-Sequels) 1 tab BID PO Last administered on 12/01/16 19:52; Admin Dose 1 TAB; Start 12/01/16 at 09:00 Docusate Sodium (Colace) 200 mg BID PO Last administered on 12/01/16 19:52; Admin Dose 100 MG; Start 12/01/16 at 09:00; Stop 12/03/16 at 21:01 Simethicone (Mylicon) 80 mg TID PRN PO DISTENSION/GAS/BLOATING Last administered on 12/01/16 19:52; Admin Dose 80 MG; Start 11/30/16 at 09:30 Senna/Docusate Sodium (Senokot-S) 2 tab BID PRN PO CONSTIPATION Last administered on 12/01/16 09:10; Admin Dose 2 TAB; Start 11/30/16 at 09:30 Magnesium Hydroxide (Milk Of Mag) 30 ml HS PRN PO CONSTIPATION; Start 11/30/16 at 09:30 Bisacodyl (Dulcolax Supp) 10 mg DAILY PRN DC CONSTIPATION; Start 11/30/16 at 09 :30 Sodium Biphosphate/ Sodium Phosphate (Fleet Enema) 133 ml DAILY PRN DC CONSTIPATION; Start 11/30/16 at 09:30 Diphenhydramine HCl (Benadryl) 25 mg Q4H PRN IM ITCHING OR RASH; Start at 15:00 Ketorolac Tromethamine (Toradol) 30 mg DAILY@06 PRN INJ ADMINSTER BY SURGEON ONLY; Start 12/01/16 at 06:00; Stop 12/05/16 at 05:59 Bupivacaine HCl/ Epinephrine Bitart (Marcaine 0.25%/ Epi (Sdv) 30 ml) 20 ml DAILY@06 PRN INJ ADMINSTER BY SURGEON ONLY; Start 12/01/16 at 06:00; Stop 12/05 at 05:59 Naloxone HCl (Narcan) 0.2 mg Q2M PRN IV DECREASED REPIRATORY RATE; Start at 09:30 Morphine Sulfate (morphine) 4 mg Q6 PRN SC MODERATE PAIN LEVEL 4-6; Start 11/30 at 11:30 Acetaminophen/ Hydrocodone Bitart ([place] (10/325)) 1 tab Q4H PRN PO PAIN Last administered on 12/01/16 09:11; Admin Dose 1 TAB; Start 11/30/16 at 11:30 Atorvastatin Calcium (Lipitor) 20 mg QHS PO Last administered on 12/01/16 19: 52; Admin Dose 20 MG; Start 11/30/16 at 21:00 Fenofibrate (Tricor) 145 mg DAILY PO Last administered on 12/01/16 09:12; Admin Dose 145 MG; Start 12/01/16 at 09:00 Valsartan (Diovan) 160 mg DAILY PO Last administered on 12/01/16 09:11; Admin Dose 160 MG; Start 11/30/16 at 21:00 Procedures Procedures hip xray report reviewed Intact right total hip arthroplasty with anatomic alignment. WU [place]. Dec 02, 2016 09:38
[2016-12-02] MEDS: FERROUS FUMARATE (SR) TAB PO SCH ×2 (10:02→21:00)
[2016-12-02] MEDS: ASPIRIN (EC) 325 MG TAB PO SCH ×2 (10:02→20:56)
[2016-12-02] MEDS: CELECOXIB 200 MG CAP PO SCH ×2 (10:02→20:55)
[2016-12-02] MEDS: DOCUSATE SODIUM 100 MG CAP PO SCH ×2 (10:02→20:55)
[2016-12-02] MEDS: SENNA/DOCUSATE NA (8.6MG/50MG) TAB PO PRN (10:02)
[2016-12-02] MEDS: FENOFIBRATE 145 MG TAB PO SCH (10:02)
[2016-12-02] MEDS: VALSARTAN 160 MG TAB PO SCH (10:02)
[2016-12-02] MEDS ORDERED: TAMSULOSIN (SR) 0.4 MG CAP PO ONE (12:30)
[2016-12-02 17:18] LABS: ADD UMIC YES; URINE BILIRUBIN (Dip) NEGATIVE (NEGATIVE); URINE BLOOD (Dip) TRACE (NEGATIVE); URINE COLOR LT. YELLOW (YELLOW); URINE GLUCOSE (Dip) NEGATIVE (NEGATIVE); URINE KETONES (Dip) NEGATIVE (NEGATIVE); URINE LEUKOCYTE ESTERASE (Dip) NEGATIVE (NEGATIVE); URINE NITRITE (Dip) NEGATIVE (NEGATIVE); URINE TOTAL PROTEIN (Dip) NEGATIVE (NEGATIVE); URINE UROBILINOGEN (Dip) 0.2 E.U./dL (0.1-1.0)
--- NOTE | 2016-12-02 20:02 | RADRPT ---
Echocardiogram Report Patient Name: IMTIAZ PALMER Gender: Male Date: 1935 Study Date: 02-Dec-2016 Railroad Brake Repairer: Fidelina Rodriguez RDCS Location: 430 Ref. Physician: CHASITY FRY Quality: Technically Difficult Study Procedures: Transthoracic echocardiogram with complete 2D, M-Mode, and doppler examination. Indications: Aortic Valve Disease. Congestive Heart Failure. 2D/M Mode Doppler Measurement Value Normal Ranges Measurement Value Normal Ranges LVIDd 2D 4.8 3.5 - 5.6 cm APRIL Vmax 1.1 cm2 LVIDs 2D 3.8 2.1 - 4.1 cm APRIL VTI 1.1 cm2 FS 2D 21.5 % AV Mean Dex 2.8 m/sec LVPWd 2D 1.1 0.6 - 1.1 cm AV Mean PG 36.0 mmHg IVSd 2D 1.3 0.6 - 1.1 cm AV Peak Dex 4.1 m/sec IVS/LVPW 2D 1.1 AV Peak PG 67.0 mmHg AoR Diam 2D 2.9 2.0 - 3.7 cm AV VTI 86.9 cm LA/Ao 2D 1 0 - 1 LVOT Mean Dex 0.8 m/sec EDV 2D 113.0 cm3 LVOT Mean PG 3.0 mmHg ESV 2D 54.4 cm3 LVOT Peak Dex 1.3 m/sec LA Dimen 2D 3.6 2.3 - 4.0 cm LVOT Peak PG 6.0 mmHg LVOT Diam 2.1 cm LVOT VTI 27.4 cm LVOT Area 3.5 cm2 MV E Peak Dex 0.7 m/sec MV A Peak Dex 1.0 m/sec MV E/A 0.7 MV Peak Dex 3.5 m/sec MV Peak PG 48.0 mmHg MV Mean Dex 2.7 m/sec MV Mean PG 34.0 mmHg MV Decel Time 169 msec MV E/A 0.7 MV VTI 90.4 cm MVA VTI 1.0 cm TR Peak Dex 2.8 m/sec TR Peak PG 31.0 mmHg RVSP 39.0 mmHg Findings Left Ventricle: Normal left ventricular systolic function. Normal left ventricular cavity size. Mild concentric left ventricular hypertrophy. Ejection fraction is visually estimated at 55 %. Tissue Doppler/Mitral Doppler indices are consistent with impaired relaxation (Stage I diastolic dysfunction). Right Ventricle: Normal right ventricular size. Normal right ventricular systolic function. Left Atrium: The left atrium is normal in size. Right Atrium: The right atrium is normal in size. Mitral Valve: Mitral valve leaflets appear mildly thickened. Mild mitral annular calcification. Mild mitral valve regurgitation. Aortic Valve: Moderate to severe aortic stenosis. Aortic valve Max velocity 4.10 m/sec. Max PG 67.00 mmHg. Mean PG 36.00 mmHg. Aortic valve area 1.09 cm2. Aortic cusps appear moderately calcified. Trace aortic valve regurgitation. Tricuspid Valve: Normal appearance of the tricuspid valve. Estimated peak PA systolic pressure 39 mmHg. There is trace tricuspid regurgitation. Pulmonic Valve: Normal pulmonic valve appearance. Pericardium: Normal pericardium with no significant pericardial effusion. Aorta: Normal aortic root. IVC: Normal size and no respiratory collapse consistent with elevated right atrial pressure. Conclusions Normal left ventricular systolic function. Normal left ventricular cavity size. Mild concentric left ventricular hypertrophy. Ejection fraction is visually estimated at 55 %. Tissue Doppler/Mitral Doppler indices are consistent with impaired relaxation (Stage I diastolic dysfunction). Normal right ventricular size. Normal right ventricular systolic function. Moderate to severe aortic stenosis. Aortic valve Max velocity 4.10 m/sec. Max PG 67.00 mmHg. Mean PG 36.00 mmHg. Aortic valve area 1.09 cm2. Aortic cusps appear moderately calcified. Trace aortic valve regurgitation. Normal appearance of the tricuspid valve. Estimated peak PA systolic pressure 39 mmHg. There is trace tricuspid regurgitation. Normal size and no respiratory collapse consistent with elevated right atrial pressure. No Vegetation, masses, or thrombi seen. Electronically Signed By: Aubrey Toney 02-Dec-2016 20:02:12 -0800 Patient Name: IMTIAZ PALMER Study Date: 02-Dec-2016 [id number]
[2016-12-02] MEDS: TAMSULOSIN (SR) 0.4 MG CAP PO SCH (20:55)
[2016-12-02] MEDS: ATORVASTATIN 20 MG TAB PO SCH (20:56)
[2016-12-02] MEDS: ZOLPIDEM 5 MG TAB PO PRN (23:32)
[2016-12-03] VITALS (14 sets, daily range): BP systolic 116–172; BP diastolic 57–77; PULSE 44–106; RESP 17–20
[2016-12-03] MEDS: PANTOPRAZOLE (EC) 40 MG TAB PO SCH (05:51)
[2016-12-03] MEDS: oxyCODONE 5 MG TAB PO PRN (05:51)
--- NOTE | 2016-12-03 06:10 | CONS ---
DATE OF ADMISSION: 11/30/2016 DATE OF CONSULTATION: 12/02/2016 REQUESTING PHYSICIAN: Dr. Jovanni Choi Dear Jovanni, Thank you for asking me to see this patient in urological consultation. HISTORY OF PRESENT ILLNESS: This is a very pleasant 81-year-old male who underwent a right hip surg antoine on 11/30/2016, because of dislocation of his right hip. The patient had an indwelling Walker cat heter postop, which was removed yesterday morning and as the catheter was removed, initially, the adelina funez was doing well and then today he started having difficulty urinating and having burning on [place] and keeping a high postvoid residual. Therefore, a urological consultation was requested. T he patient states that prior to his hospitalization, he was getting up at night 3 to 4 times and dur ing the day, he urinates every 2 hours. His urinary stream is slow. There is no burning or stingin g on urination. No history of gross hematuria. He has had a transurethral resection of the prostat e in the s and again about maybe 6 to 7 years earlier, and he has been followed by Dr. Araujo and, a ccording to him, he was told that his prostate is okay. According to him, it is not large and he darnell s been urinating well. PAST MEDICAL HISTORY: Includes a history of lumbar back surgery, surgery for dislocated right hip, history of kidney stone and he has been checked by Dr. Araujo for these stones and basically they are not causing any obstruction. History of hyperlipidemia, aortic stenosis, colon polyps, and the pat sugey had a history of coronary artery disease at angioplasty. PAST SURGICAL HISTORY: Umbilical hernia repair, hiatal hernia repair, cholecystectomy, left hip rep lacement, left knee and right knee replacements and now right hip surgery. SOCIAL HISTORY: He does not smoke, does not drink any alcohol, and there is no history of drug abus e. HOME MEDICATIONS: Included: 1. Diovan. 2. [place]. 3. Gabapentin. 4. Crestor. 5. Lipitor. CURRENT MEDICATIONS: Include: 1. Clonidine. 1. Oxycodone. 2. Aspirin. 3. Celebrex. 4. Colace. 5. Ferrous fumarate. 6. Tricor. 7. Decadron. 8. Protonix. 9. Toradol. 10. Atorvastatin. 11. Valsartan. 12. Benadryl. 13. Morphine sulfate. 14. Ambien for sleep. 15. Simethicone and senna docusate sodium p.r.n. for constipation. 16. Milk of magnesia p.r.n. as well. 17. Urecholine 25 mg p.r.n. PHYSICAL EXAMINATION: GENERAL: Reveals an elderly male who weighs about 84.5 kilograms. He is 71 inches tall. VITAL SIGNS: Show a temperature of 98.1, pulse of 52, respirations 20, blood pressure 181/93. HEAD AND NECK: Normal. There is no stiffness of his neck. He is anicteric. ABDOMEN: Soft. It is a little large and he was trying to urinate and it hurts as he does urinate a nd pressure over the suprapubic area causes him the urge to urinate. GENITALIA: External genitalia are otherwise normal. RECTAL: Examination revealed a large and soft prostate. The prostate is not large enough by recta l exam. EXTREMITIES: He is status post surgery on his right hip. LABORATORY DATA: His CBC shows a white count of 11.5, hemoglobin is 10.8, hematocrit 32.2. BUN is 33, creatinine 1.35. Electrolytes are normal. Urinalysis showed 2 to 5 RBCs per high power field, otherwise the urine analysis is negative. Urine culture no growth after 48 hours. IMPRESSION: Urinary retention post-surgery. PLAN: Continue him on the Flomax, and also check his postvoid residual. If the postvoid residual i s over 300, then I will do a straight catheterization on him. If he does not void in 7 to 8 hours, then do the bladder scan and when the bladder volume is over 500, do a straight catheterization as w lucy. I think as soon The patient moves around and ambulates, he would do better and will start empt milton his bladder. In the meantime, we shall continue to do a straight catheterization on him for pos tvoid residual over 300 and a bladder volume over 500. I discussed that with the patient and he belia l let the nurse know whenever he has to urinate. Dictated By: SANDRA REESE/QUYEN Conf#: [id number] DID#: [id number]
--- NOTE | 2016-12-03 06:31 | PN ---
Date/Time of Note Date/Time of Note DATE: 12/03/16 TIME: 06:25 Assessment/Plan VTE Prophylaxis VTE Prophylaxis Intervention: ambulation, SCD's, other (ASA 325mg) Lines/Catheters IV Catheter Type (from Nrsg): Saline Lock Walker in Place (from Nrsg): No Assessment/Plan Assessment/Plan Patient is clear to go home from orthopedic standpoint. Patient must be cleared by internal medicine prior to departure Postop plan is to return home with home health aide Continue DVT prophylaxis which was discussed again with patient today Pain medication as needed. Internal medicine will continue to monitor patient on telemetry unit. Subjective 24 Hr Interval Summary 81 yo male POD3 for R total hip revision. Patient cleared by orthopedics on but due to irregular heart activity and wide ranging pulse rate with activity, Dr. Choi elected to keep patient on additional day for monitoring to ensure patient safety. Patient was transferred to telemetry unit. Patient states that he has been doing well in regards to his right hip. Denies any pain complaints. Patient did not have much walking therapy yesterday as they wanted him arrested so they can monitor ongoing cardiac issues to ensure stability. Overall patient doing well. Continues with DVT prophylaxis with SCDs and aspirin. Pain Control: well controlled Exam/Review of Systems Vital Signs Vitals Vital Signs Date Time Temp Pulse Resp B/P Pulse Ox O2 Delivery O2 Flow Rate FiO2 12/03/16 04:02 70 12/03/16 03:44 98.2 18 137/66 92 12/02/16 04:57 Room Air 12/01/16 08:10 2.0 Intake and Output 12/02/16 12/02/16 12/03/16 15:00 23:00 07:00 Intake Total 500 ml 600 ml 650 ml Output Total 1550 ml 729 ml 620 ml Balance -1050 ml -129 ml 30 ml Exam Free Text/Dictation Wound site is clean dry and intact. [place] intact. No swelling. No drainage or discharge. No tenderness to palpation on exam. Patient is able to flex the hip up to 60 today. No pain with range of motion. No calf pain/negative Homans sign. Toes freely movable. 2+ pedal pulses to the dorsalis pedis and posterior tibialis. Normal sensory examination to light touch surrounding the wound. Results Result Diagram: 12/02/16 0415 12/02/16 0445 AZEEM QUINN PA-C Dec 03, 2016 06:31
[2016-12-03 07:09] LABS: BASOPHILS % 0.3 % (0.0-2.0); EOSINOPHILS # 0.1 10^3/ul (0.0-0.5); EOSINOPHILS % 1.1 % (0.0-7.0); HEMATOCRIT 33.5 % (42.0-52.0); HEMOGLOBIN 11.7 g/dl (14.0-18.0); LYMPHOCYTES # 2.1 10^3/ul (0.8-2.9); LYMPHOCYTES % 22.3 % (15.0-51.0); MEAN CORPUSCULAR HEMOGLOBIN 34.9 pg (29.0-33.0); MEAN CORPUSCULAR HGB CONC 35.1 g/dl (32.0-37.0); MEAN CORPUSCULAR VOLUME 99.4 fl (82.0-101.0); MONOCYTE # 0.8 10^3/ul (0.3-0.9); NEUTROPHIL # 6.5 10^3/ul (1.6-7.5); NEUTROPHILS % 68.3 % (39.0-77.0); PLATELET COUNT 186 10^3/UL (140-440); RED BLOOD COUNT 3.37 10^6/ul (4.70-6.10); RED CELL DISTRIBUTION WIDTH 14.1 % (11.5-14.5); UNCORRECTED WBC 9.5 10^3/ul (4.8-10.8); WHITE BLOOD COUNT 9.5 10^3/ul (4.8-10.8)
[2016-12-03 07:13] LABS: POTASSIUM 4.9 mmol/L (3.5-5.1)
[2016-12-03 07:15] LABS: CREATININE 1.33 mg/dl (0.61-1.24)
[2016-12-03 07:16] LABS: CALCIUM 8.6 mg/dl (8.4-10.2); MAGNESIUM 1.9 mg/dl (1.7-2.5)
[2016-12-03 07:20] LABS: CONDITION 1
[2016-12-03] MEDS: DEXAMETHASONE 4 MG/ML 1 ML INJ IV SCH (08:15)
[2016-12-03] MEDS: DOCUSATE SODIUM 100 MG CAP PO SCH ×2 (08:16→20:49)
[2016-12-03] MEDS: FERROUS FUMARATE (SR) TAB PO SCH ×2 (08:16→20:49)
[2016-12-03] MEDS: ASPIRIN (EC) 325 MG TAB PO SCH ×2 (08:16→20:49)
[2016-12-03] MEDS: FENOFIBRATE 145 MG TAB PO SCH (08:16)
[2016-12-03] MEDS: CELECOXIB 200 MG CAP PO SCH ×2 (08:16→20:49)
[2016-12-03] MEDS: VALSARTAN 160 MG TAB PO SCH (08:22)
--- NOTE | 2016-12-03 10:12 | CONS ---
Date/Time of Note Date/Time of Note DATE: 12/03/16 TIME: 10:06 Assessment/Plan Assessment/Plan Chief Complaint/Hosp Course Impression: 1- bradycardia- likely actually normal hr but pt with frequent bigeminy and thus hr erroneously reported as low. no graciela on tele 2- tachycardia- not captured on ekg, frequent pvcs on tele no arrhythmia 3- h/o of cad s/p remote PTCA - cont asa/statin 4- Moderate to severe - avoid aggressive tx of hypertension given fixed obstruction, risk for hypotension. does have mild congestion on exam, gentle diuresis. needs f/u as outpatient as likely will need valve replacement at some point 5- s/p R hip repair- cleared by ortho for d/c 6 HTN- improved control Recommendations - d/c clonidine - cont valsartan - add low dose metoprolol 12.5mg po bid - cont asa/statin - gentle diuresis with lasix 40mg po x 1, dose daily keep slightly neg - bladder scan with prn cath - strict i/o will follow Problems: Consultation Date/Type/Reason Admit Date/Time Nov 30, 2016 at 05:34 Initial Consult Date 12/02/16 Type of Consultation: Cardiology Referring Provider: CHASITY FRY MD 24 HR Interval Summary Free Text/Dictation no acute events. pt with urinary retention he states, requiring intermittent cath. states standing or sitting does not help urination. no cp/sob/dizziness. tele tracings reviewed, frequent pvc's no bradycardia, sinus rhythm to tachy arrhythmia Constitutional: no complaints Detailed Summary Eyes: no complaints ENT: no complaints Respiratory: no complaints Cardiovascular: no complaints Gastrointestinal: no complaints Genitourinary: other (retention) Musculoskeletal: back pain, bone/joint pain Exam/Review of Systems Vital Signs Vitals Vital Signs Date Time Temp Pulse Resp B/P Pulse Ox O2 Delivery O2 Flow Rate FiO2 12/03/16 09:00 94 12/03/16 07:44 98.0 19 121/57 92 12/02/16 04:57 Room Air 12/01/16 08:10 2.0 Intake and Output 12/02/16 12/02/16 12/03/16 15:00 23:00 07:00 Intake Total 500 ml 600 ml 650 ml Output Total 1550 ml 729 ml 620 ml Balance -1050 ml -129 ml 30 ml Exam Constitutional: alert, oriented Psych: nl mood/affect, no complaints Head: atraumatic, normocephalic Eyes: EOMI, nl conjunctiva, nl lids ENMT: nl external ears & nose, nl nasal mucosa & septum Neck: non-tender, supple, No jvd Respiratory: clear to auscultation, normal air movement Cardiovascular: regular rate and rhythm, iii/iv SHEN RUSB No S3, No irregular rhythm, No jugular venous distention (JVD) Gastrointestinal: non-tender, soft Musculoskeletal: nl extremities to inspection, other (R hip wound c/d/i), No muscle weakness Extremities: normal pulses R>L le edema pre tibial, 1+ Neurological: TOWER HAND II-XII intact, nl mental status, nl speech, nl strength Skin: nl turgor Results Result Diagram: 12/03/16 0630 12/03/16 0630 Results 24 hrs Laboratory Tests Test 12/02/16 14:27 12/03/16 06:30 Urine Bilirubin NEGATIVE Urine Clarity CLEAR Urine Color LT. YELLOW Urine Glucose NEGATIVE Urine Hemoglobin TRACE Urine Ketones NEGATIVE Urine Leukocyte Esterase NEGATIVE Urine Microscopic RBC 2-5 Urine Microscopic WBC NONE SEEN Urine Nitrite NEGATIVE Urine Specific [place] <=1.005 L Urine Total Protein NEGATIVE Urine Urobilinogen 0.2 E.U./dL Urine pH 5.0 Anion Gap 12 Basophils # 0.0 Basophils % 0.3 Blood Urea Nitrogen 42 H Calcium Level 8.6 Carbon Dioxide Level 28 Chloride Level 108 Creatinine 1.33 H Eosinophils # 0.1 Eosinophils % 1.1 Glucose Level 92 Hematocrit 33.5 L Hemoglobin 11.7 L Lymphocytes # 2.1 Lymphocytes % 22.3 Magnesium Level 1.9 Mean Corpuscular Hemoglobin 34.9 H Mean Corpuscular Hemoglobin Concent 35.1 Mean Corpuscular Volume 99.4 Mean Platelet Volume 9.0 Monocytes # 0.8 Monocytes % 8.0 Neutrophils # 6.5 Neutrophils % 68.3 Nucleated Red Blood Cells # 0.0 Nucleated Red Blood Cells % 0.0 Platelet Count 186 Potassium Level 4.9 Red Blood Count 3.37 L Red Cell Distribution Width 14.1 Sodium Level 143 White Blood Count 9.5 Medications Medications Current Medications Oxycodone HCl (Roxicodone) 20 mg Q3H PRN PO PAIN LEVEL 8-10; Start 12/01/16 at 09:00 Oxycodone HCl (Roxicodone) 10 mg Q3H PRN PO PAIN LEVEL 4-7 Last administered on 12/03/16 05:51; Admin Dose 10 MG; Start 12/01/16 at 09:00 Zolpidem Tartrate (Ambien) 5 mg HS PRN PO INSOMNIA Last administered on 23:32; Admin Dose 5 MG; Start 11/30/16 at 09:30 Aspirin (Ecotrin) 325 mg BID PO Last administered on 12/03/16 08:16; Admin Dose 325 MG; Start 12/01/16 at 09:00 Celecoxib (Celebrex) 200 mg BID PO Last administered on 12/03/16 08:16; Admin Dose 200 MG; Start 12/01/16 at 09:00 Dexamethasone (Decadron) 4 mg DAILY@07 IV Last administered on 12/03/16 08:15 ; Admin Dose 4 MG; Start 12/01/16 at 07:00; Stop 12/04/16 at 06:59 Pantoprazole (Protonix Tab) 40 mg DAILY@06 PO Last administered on 12/03/16 05 :51; Admin Dose 40 MG; Start 12/01/16 at 06:00 Docusate Sodium/ Ferrous Fumarate (Blank-Sequels) 1 tab BID PO Last administered on 12/03/16 08:16; Admin Dose 1 TAB; Start 12/01/16 at 09:00 Docusate Sodium (Colace) 200 mg BID PO Last administered on 12/03/16 08:16; Admin Dose 200 MG; Start 12/01/16 at 09:00; Stop 12/03/16 at 21:01 Simethicone (Mylicon) 80 mg TID PRN PO DISTENSION/GAS/BLOATING Last administered on 12/01/16 19:52; Admin Dose 80 MG; Start 11/30/16 at 09:30 Senna/Docusate Sodium (Senokot-S) 2 tab BID PRN PO CONSTIPATION Last administered on 12/02/16 10:02; Admin Dose 2 TAB; Start 11/30/16 at 09:30 Magnesium Hydroxide (Milk Of Mag) 30 ml HS PRN PO CONSTIPATION; Start 11/30/16 at 09:30 Bisacodyl (Dulcolax Supp) 10 mg DAILY PRN [place] CONSTIPATION; Start 11/30/16 at 09 :30 Sodium Biphosphate/ Sodium Phosphate (Fleet Enema) 133 ml DAILY PRN [place] CONSTIPATION; Start 11/30/16 at 09:30 Diphenhydramine HCl (Benadryl) 25 mg Q4H PRN IM ITCHING OR RASH; Start at 15:00 Ketorolac Tromethamine (Toradol) 30 mg DAILY@06 PRN INJ ADMINSTER BY SURGEON ONLY; Start 12/01/16 at 06:00; Stop 12/05/16 at 05:59 Bupivacaine HCl/ Epinephrine Bitart (Marcaine 0.25%/ Epi (Sdv) 30 ml) 20 ml DAILY@06 PRN INJ ADMINSTER BY SURGEON ONLY; Start 12/01/16 at 06:00; Stop 12/05 at 05:59 Naloxone HCl (Narcan) 0.2 mg Q2M PRN IV DECREASED REPIRATORY RATE; Start at 09:30 Morphine Sulfate (morphine) 4 mg Q6 PRN SC MODERATE PAIN LEVEL 4-6; Start 11/30 at 11:30 Acetaminophen/ Hydrocodone Bitart ([place] (10/325)) 1 tab Q4H PRN PO PAIN Last administered on 12/01/16 09:11; Admin Dose 1 TAB; Start 11/30/16 at 11:30 Atorvastatin Calcium (Lipitor) 20 mg QHS PO Last administered on 12/02/16 20: 56; Admin Dose 20 MG; Start 11/30/16 at 21:00 Fenofibrate (Tricor) 145 mg DAILY PO Last administered on 12/03/16 08:16; Admin Dose 145 MG; Start 12/01/16 at 09:00 Valsartan (Diovan) 160 mg DAILY PO Last administered on 12/02/16 10:02; Admin Dose 160 MG; Start 11/30/16 at 21:00 Tamsulosin HCl (Flomax) 0.4 mg HS PO Last administered on 12/02/16 20:55; Admin Dose 0.4 MG; Start 12/02/16 at 21:00 WU [place] Dec 03, 2016 10:12
[2016-12-03] MEDS ORDERED: FUROSEMIDE 40 MG TAB PO ONE (10:30)
[2016-12-03] MEDS: METOPROLOL 25 MG TAB PO SCH ×2 (11:55→21:00)
--- NOTE | 2016-12-03 12:06 | CONS ---
Date/Time of Note Date/Time of Note DATE: 12/03/16 TIME: 12:02 Assessment/Plan Assessment/Plan Additional Assessment/Plan Bradycardia likely more bigeminy than actual bradycardia per Cards. Tele wnl. d/c clonidine and cont ARB per Cards Started on low dose BB Started on PO Lasix 40 daily Cont asa/statin Moderate to severe - gentle diuresis. F/U as outpatient to consider valve replacement at some point s/p R hip repair- cleared by ortho for d/c Urinary retention - s/p straight yesterday and today. Anticipate improvement with ambulation today stable for d/c from medical standpoint once able to void. Likely d/c home tomorrow. Consultation Date/Type/Reason Admit Date/Time Nov 30, 2016 at 05:34 Initial Consult Date 12/02/16 Type of Consultation: Internal Medicine Referring Provider: ARMOND HANSEN MD 24 HR Interval Summary Free Text/Dictation Still not able to urinate with urinal this AM, had to be straight cath'd. About to ambulate with PT. No other issues. Exam/Review of Systems Vital Signs Vitals Vital Signs Date Time Temp Pulse Resp B/P Pulse Ox O2 Delivery O2 Flow Rate FiO2 12/03/16 09:00 94 12/03/16 07:44 98.0 19 121/57 92 12/02/16 04:57 Room Air 12/01/16 08:10 2.0 Intake and Output 12/02/16 12/02/16 12/03/16 15:00 23:00 07:00 Intake Total 500 ml 600 ml 650 ml Output Total 1550 ml 729 ml 620 ml Balance -1050 ml -129 ml 30 ml Exam Respiratory: clear to auscultation, normal air movement Cardiovascular: nl pulses, regular rate and rhythm Gastrointestinal: nl liver, spleen, non-tender, soft Results Result Diagram: 12/03/16 0630 12/03/16 0630 Results 24 hrs Laboratory Tests Test 12/02/16 14:27 12/03/16 06:30 Urine Bilirubin NEGATIVE Urine Clarity CLEAR Urine Color LT. YELLOW Urine Glucose NEGATIVE Urine Hemoglobin TRACE Urine Ketones NEGATIVE Urine Leukocyte Esterase NEGATIVE Urine Microscopic RBC 2-5 Urine Microscopic WBC NONE SEEN Urine Nitrite NEGATIVE Urine Specific [place] <=1.005 L Urine Total Protein NEGATIVE Urine Urobilinogen 0.2 E.U./dL Urine pH 5.0 Anion Gap 12 Basophils # 0.0 Basophils % 0.3 Blood Urea Nitrogen 42 H Calcium Level 8.6 Carbon Dioxide Level 28 Chloride Level 108 Creatinine 1.33 H Eosinophils # 0.1 Eosinophils % 1.1 Glucose Level 92 Hematocrit 33.5 L Hemoglobin 11.7 L Lymphocytes # 2.1 Lymphocytes % 22.3 Magnesium Level 1.9 Mean Corpuscular Hemoglobin 34.9 H Mean Corpuscular Hemoglobin Concent 35.1 Mean Corpuscular Volume 99.4 Mean Platelet Volume 9.0 Monocytes # 0.8 Monocytes % 8.0 Neutrophils # 6.5 Neutrophils % 68.3 Nucleated Red Blood Cells # 0.0 Nucleated Red Blood Cells % 0.0 Platelet Count 186 Potassium Level 4.9 Red Blood Count 3.37 L Red Cell Distribution Width 14.1 Sodium Level 143 White Blood Count 9.5 Medications Medications Current Medications Oxycodone HCl (Roxicodone) 20 mg Q3H PRN PO PAIN LEVEL 8-10; Start 12/01/16 at 09:00 Oxycodone HCl (Roxicodone) 10 mg Q3H PRN PO PAIN LEVEL 4-7 Last administered on 12/03/16 05:51; Admin Dose 10 MG; Start 12/01/16 at 09:00 Zolpidem Tartrate (Ambien) 5 mg HS PRN PO INSOMNIA Last administered on 23:32; Admin Dose 5 MG; Start 11/30/16 at 09:30 Aspirin (Ecotrin) 325 mg BID PO Last administered on 12/03/16 08:16; Admin Dose 325 MG; Start 12/01/16 at 09:00 Celecoxib (Celebrex) 200 mg BID PO Last administered on 12/03/16 08:16; Admin Dose 200 MG; Start 12/01/16 at 09:00 Dexamethasone (Decadron) 4 mg DAILY@07 IV Last administered on 12/03/16 08:15 ; Admin Dose 4 MG; Start 12/01/16 at 07:00; Stop 12/04/16 at 06:59 Pantoprazole (Protonix Tab) 40 mg DAILY@06 PO Last administered on 12/03/16 05 :51; Admin Dose 40 MG; Start 12/01/16 at 06:00 Docusate Sodium/ Ferrous Fumarate (Blank-Sequels) 1 tab BID PO Last administered on 12/03/16 08:16; Admin Dose 1 TAB; Start 12/01/16 at 09:00 Docusate Sodium (Colace) 200 mg BID PO Last administered on 12/03/16 08:16; Admin Dose 200 MG; Start 12/01/16 at 09:00; Stop 12/03/16 at 21:01 Simethicone (Mylicon) 80 mg TID PRN PO DISTENSION/GAS/BLOATING Last administered on 12/01/16 19:52; Admin Dose 80 MG; Start 11/30/16 at 09:30 Senna/Docusate Sodium (Senokot-S) 2 tab BID PRN PO CONSTIPATION Last administered on 12/02/16 10:02; Admin Dose 2 TAB; Start 11/30/16 at 09:30 Magnesium Hydroxide (Milk Of Mag) 30 ml HS PRN PO CONSTIPATION; Start 11/30/16 at 09:30 Bisacodyl (Dulcolax Supp) 10 mg DAILY PRN [place] CONSTIPATION; Start 11/30/16 at 09 :30 Sodium Biphosphate/ Sodium Phosphate (Fleet Enema) 133 ml DAILY PRN [place] CONSTIPATION; Start 11/30/16 at 09:30 Diphenhydramine HCl (Benadryl) 25 mg Q4H PRN IM ITCHING OR RASH; Start at 15:00 Ketorolac Tromethamine (Toradol) 30 mg DAILY@06 PRN INJ ADMINSTER BY SURGEON ONLY; Start 12/01/16 at 06:00; Stop 12/05/16 at 05:59 Bupivacaine HCl/ Epinephrine Bitart ([place] 0.25%/ Epi (Sdv) 30 ml) 20 ml DAILY@06 PRN INJ ADMINSTER BY SURGEON ONLY; Start 12/01/16 at 06:00; Stop 12/05 at 05:59 Naloxone HCl (Narcan) 0.2 mg Q2M PRN IV DECREASED REPIRATORY RATE; Start at 09:30 Morphine Sulfate (morphine) 4 mg Q6 PRN SC MODERATE PAIN LEVEL 4-6; Start 11/30 at 11:30 Acetaminophen/ Hydrocodone Bitart ([place] (10/325)) 1 tab Q4H PRN PO PAIN Last administered on 12/01/16 09:11; Admin Dose 1 TAB; Start 11/30/16 at 11:30 Atorvastatin Calcium (Lipitor) 20 mg QHS PO Last administered on 12/02/16 20: 56; Admin Dose 20 MG; Start 11/30/16 at 21:00 Fenofibrate (Tricor) 145 mg DAILY PO Last administered on 12/03/16 08:16; Admin Dose 145 MG; Start 12/01/16 at 09:00 Valsartan (Diovan) 160 mg DAILY PO Last administered on 12/02/16 10:02; Admin Dose 160 MG; Start 11/30/16 at 21:00 Tamsulosin HCl (Flomax) 0.4 mg HS PO Last administered on 12/02/16 20:55; Admin Dose 0.4 MG; Start 12/02/16 at 21:00 Metoprolol Tartrate (Lopressor) 12.5 mg BID PO ; Start 12/03/16 at 10:30 TOÑO DUKES MD Dec 03, 2016 12:06
[2016-12-03] MEDS: HYDROCODONE/APAP (10/325) TAB PO PRN ×2 (13:15→21:15)
--- NOTE | 2016-12-03 16:21 | RADRPT ---
PROCEDURE: US Lower extremity Venous. CLINICAL INDICATION: Right leg pain and swelling TECHNIQUE: Multiple sonographic images of bilateral lower extremity deep venous system was obtaine d utilizing grayscale, color-flow, compressive sonography and doppler imaging with augmentation. Th e images were reviewed on a PACS workstation. COMPARISON: None. FINDINGS: There is normal compressibility and flow within the bilateral common femoral, deep femoral, superfic ial femoral, posterior tibial, peroneal and popliteal veins. IMPRESSION: No sonographic evidence for deep venous thrombosis. RPTAT:AAJJ Physician Frances Date Time Electronically viewed and signed by Physician Frances on 12/03/2016 16:20 DEREK/
--- NOTE | 2016-12-03 17:01 | RADRPT ---
PROCEDURE: US Pelvis. CLINICAL INDICATION: There are retention. Rule TECHNIQUE: Sonographic evaluation of the. Postvoid bladder using real time lewis scale ultrasound imaging. COMPARISON: None. FINDINGS: The bladder is normal and distension and position without mass or mural thickening. Prevoid bladder volume is 302 ml and postvoid bladder volume 249 ml. Enlarged prostate measuring 5. 7 x 5.4 x 5.2 cm in size. IMPRESSION: 1. Normal appearance of the bladder. 2. Large postvoid residual of 249 ml. 3. Large prostate measuring 5.7 cm in greatest dimension. Rule RPTAT:AAJJ Kala Mak Physician Date Time Electronically viewed and signed by Physician Frances on 12/03/2016 17:01 DEREK/
--- NOTE | 2016-12-03 20:42 | PN ---
DATE: 12/03/2016 CHIEF COMPLAINT: Urinary retention. Patient is status post right hip surgery. SUBJECTIVE: The patient was not able to urinate yesterday and on 2 occasions he had to be catheteri zed. This morning, the nurse did catheterize him. The patient voided and then they did the bladder scan. The bladder scan volume showed 375 mL and when the straight cathed him only, they obtained a bout 200. MICROBIOLOGY: The urine culture no growth after 48 hours. MEDICATIONS The patient is already on: 1. Tamsulosin. 2. Urecholine p.r.n. OBJECTIVE VITAL SIGNS: His temperature is 98.1, pulse is 106, respiration 17, blood pressure 156/72. IMPRESSION: Incomplete bladder emptying and urinary retention. PLAN: To continue the tamsulosin. Also, do a pelvic ultrasound. Check the pre and postvoid bladde r volume and the prostate size, so we will have a more objective finding on his prostate and see if we need to modify our treatment. Dictated By: SANDRA REESE/QUYEN Conf#: [id number] DID#: [id number]
[2016-12-03] MEDS: ATORVASTATIN 20 MG TAB PO SCH (20:49)
[2016-12-03] MEDS: TAMSULOSIN (SR) 0.4 MG CAP PO SCH (20:49)
[2016-12-03] MEDS: ZOLPIDEM 5 MG TAB PO PRN (22:47)
[2016-12-04] VITALS (12 sets, daily range): BP systolic 153–190; BP diastolic 64–80; PULSE 47–103; RESP 18–20
[2016-12-04] MEDS: PANTOPRAZOLE (EC) 40 MG TAB PO SCH (06:05)
--- NOTE | 2016-12-04 07:27 | PN ---
Date/Time of Note Date/Time of Note DATE: 12/04/16 TIME: 07:22 Assessment/Plan VTE Prophylaxis VTE Prophylaxis Intervention: ambulation, SCD's, other (ASA 325mg BID) Lines/Catheters IV Catheter Type (from Nrs): Saline Lock Walker in Place (from Nrs): No Assessment/Plan Assessment/Plan Continue monitoring with internal medicine in regards to unstable blood pressure and heart rate. Dressing change performed today DVT prophylaxis discussed with aspirin/SCDs Pain medication as needed Patient provided with Tegaderm to take home when discharged with strict instructions in regards to keeping wound dry while showering especially until ant are removed. Patient plans to be discharged home with monitoring by home health We will continue to follow until discharge from hospital Subjective 24 Hr Interval Summary 81-year-old male postop day 4 right posterior total hip revision. Patient remains inpatient as he continues to have unstable blood pressure as well as wide ranging heart rate. Patient also had difficulty urinating. He states that Walker catheter was reinserted and after urination it was discontinued. Denies any pain with urination. Denies any increased urge to urinate. Patient denies any difficulty breathing, calf pain, chest pain. Patient denies any pain to the right hip. Patient is up and walking throughout the halls with assistance using front wheeled walker. Overall, patient is very pleasant and continues to do well from an orthopedic standpoint. Patient awaiting discharge from internal medicine when blood pressure as well as wide-ranging heart rate is stabilized. Pain Control: well controlled Exam/Review of Systems Vital Signs Vitals Vital Signs Date Time Temp Pulse Resp B/P Pulse Ox O2 Delivery O2 Flow Rate FiO2 12/04/16 04:01 90 12/04/16 04:00 98.1 18 153/67 93 12/03/16 23:08 Room Air 12/01/16 08:10 2.0 Intake and Output 12/03/16 12/03/16 12/04/16 15:00 23:00 07:00 Intake Total 740 ml Output Total 200 ml 1980 ml 150 ml Balance -200 ml -1240 ml -150 ml Exam Free Text/Dictation Wound is clean dry and intact. Ant intact to the right hip. Normal sensory examination to light touch. No tenderness to palpation. Patient is able to flex up to 80 on exam. 2+ dorsalis pedis and posterior tibialis pulses. Toes freely movable. Results Result Diagram: 12/03/1630 12/03/16 0630 AZEEM QUINN PA-C Dec 04, 2016 07:27
[2016-12-04 08:27] LABS: BASOPHILS % 0.4 % (0.0-2.0); EOSINOPHILS # 0.2 10^3/ul (0.0-0.5); EOSINOPHILS % 1.8 % (0.0-7.0); HEMATOCRIT 34.8 % (42.0-52.0); HEMOGLOBIN 12.2 g/dl (14.0-18.0); LYMPHOCYTES # 3.5 10^3/ul (0.8-2.9); LYMPHOCYTES % 29.2 % (15.0-51.0); MEAN CORPUSCULAR HEMOGLOBIN 34.9 pg (29.0-33.0); MEAN CORPUSCULAR HGB CONC 34.9 g/dl (32.0-37.0); MEAN PLATELET VOLUME 9.2 fl (7.4-10.4); MONOCYTE # 0.9 10^3/ul (0.3-0.9); MONOCYTES % 7.5 % (0.0-11.0); NEUTROPHIL # 7.3 10^3/ul (1.6-7.5); NEUTROPHILS % 61.1 % (39.0-77.0); PLATELET COUNT 216 10^3/UL (140-440); RED BLOOD COUNT 3.48 10^6/ul (4.70-6.10); UNCORRECTED WBC 11.9 10^3/ul (4.8-10.8); WHITE BLOOD COUNT 11.9 10^3/ul (4.8-10.8)
[2016-12-04 08:59] LABS: CONDITION 1
[2016-12-04] MEDS: METOPROLOL 25 MG TAB PO SCH ×2 (09:00→09:56)
[2016-12-04] MEDS: ASPIRIN (EC) 325 MG TAB PO SCH ×2 (09:54→21:20)
[2016-12-04] MEDS: CELECOXIB 200 MG CAP PO SCH ×2 (09:54→21:21)
[2016-12-04] MEDS: FENOFIBRATE 145 MG TAB PO SCH (09:56)
[2016-12-04] MEDS: VALSARTAN 160 MG TAB PO SCH (09:56)
[2016-12-04] MEDS: FERROUS FUMARATE (SR) TAB PO SCH ×2 (09:56→21:20)
--- NOTE | 2016-12-04 10:15 | CONS ---
Date/Time of Note Date/Time of Note DATE: 12/04/16 TIME: 10:12 Assessment/Plan Assessment/Plan Additional Assessment/Plan Bradycardia likely more bigeminy than actual bradycardia per Cards. Tele wnl. Clonidine d/esha valsartan 160 with holding parameters for SBP < 160 on MTP 12.5mg BID with fluctuating HR, await Cardiology recs regarding dosing Started on PO Lasix 40 daily, continue Cont asa/statin Moderate to severe - gentle diuresis. F/U as outpatient to consider valve replacement at some point s/p R hip repair- cleared by ortho for d/c Urinary retention - improving, PVR 84 this AM stable for d/c once HR and BP controlled, and diuresis adequate Consultation Date/Type/Reason Admit Date/Time Nov 30, 2016 at 05:34 Initial Consult Date 12/02/16 Type of Consultation: Internal Medicine Referring Provider: ARMOND HANSEN MD 24 HR Interval Summary Free Text/Dictation Urinating better, PVR 84 this AM. Last straight last night. BP and HR fluctuating. No chest pain. Constitutional: no complaints Exam/Review of Systems Vital Signs Vitals Vital Signs Date Time Temp Pulse Resp B/P Pulse Ox O2 Delivery O2 Flow Rate FiO2 12/04/16 08:14 94 12/04/16 07:25 98.2 19 168/73 93 12/03/16 23:08 Room Air 12/01/16 08:10 2.0 Intake and Output 12/03/16 12/03/16 12/04/16 15:00 23:00 07:00 Intake Total 740 ml Output Total 200 ml 1980 ml 150 ml Balance -200 ml -1240 ml -150 ml Exam Constitutional: alert, oriented, well developed Head: atraumatic, normocephalic Respiratory: clear to auscultation, normal air movement Cardiovascular: nl pulses, regular rate and rhythm Gastrointestinal: nl liver, spleen, non-tender, soft Extremities: normal pulses Results Result Diagram: 12/04/16 0650 12/03/16 0630 Results 24 hrs Laboratory Tests Test 12/04/16 06:50 Basophils # 0.0 Basophils % 0.4 Eosinophils # 0.2 Eosinophils % 1.8 Hematocrit 34.8 L Hemoglobin 12.2 L Lymphocytes # 3.5 H Lymphocytes % 29.2 Mean Corpuscular Hemoglobin 34.9 H Mean Corpuscular Hemoglobin Concent 34.9 Mean Corpuscular Volume 100.0 Mean Platelet Volume 9.2 Monocytes # 0.9 Monocytes % 7.5 Neutrophils # 7.3 Neutrophils % 61.1 Nucleated Red Blood Cells # 0.0 Nucleated Red Blood Cells % 0.0 Platelet Count 216 Red Blood Count 3.48 L Red Cell Distribution Width 14.0 White Blood Count 11.9 #H Medications Medications Current Medications Oxycodone HCl (Roxicodone) 20 mg Q3H PRN PO PAIN LEVEL 8-10; Start 12/01/16 at 09:00 Oxycodone HCl (Roxicodone) 10 mg Q3H PRN PO PAIN LEVEL 4-7 Last administered on 12/03/16 05:51; Admin Dose 10 MG; Start 12/01/16 at 09:00 Zolpidem Tartrate (Ambien) 5 mg HS PRN PO INSOMNIA Last administered on 22:47; Admin Dose 5 MG; Start 11/30/16 at 09:30 Aspirin (Ecotrin) 325 mg BID PO Last administered on 12/04/16 09:54; Admin Dose 325 MG; Start 12/01/16 at 09:00 Celecoxib (Celebrex) 200 mg BID PO Last administered on 12/04/16 09:54; Admin Dose 200 MG; Start 12/01/16 at 09:00 Pantoprazole (Protonix Tab) 40 mg DAILY@06 PO Last administered on 12/04/16 06 :05; Admin Dose 40 MG; Start 12/01/16 at 06:00 Docusate Sodium/ Ferrous Fumarate (Blank-Sequels) 1 tab BID PO Last administered on 12/04/16 09:56; Admin Dose 1 TAB; Start 12/01/16 at 09:00 Simethicone (Mylicon) 80 mg TID PRN PO DISTENSION/GAS/BLOATING Last administered on 12/01/16 19:52; Admin Dose 80 MG; Start 11/30/16 at 09:30 Senna/Docusate Sodium (Senokot-S) 2 tab BID PRN PO CONSTIPATION Last administered on 12/02/16 10:02; Admin Dose 2 TAB; Start 11/30/16 at 09:30 Magnesium Hydroxide (Milk Of Mag) 30 ml HS PRN PO CONSTIPATION; Start 11/30/16 at 09:30 Bisacodyl (Dulcolax Supp) 10 mg DAILY PRN [place] CONSTIPATION; Start 11/30/16 at 09 :30 Sodium Biphosphate/ Sodium Phosphate (Fleet Enema) 133 ml DAILY PRN [place] CONSTIPATION; Start 11/30/16 at 09:30 Diphenhydramine HCl (Benadryl) 25 mg Q4H PRN IM ITCHING OR RASH; Start at 15:00 Ketorolac Tromethamine (Toradol) 30 mg DAILY@06 PRN INJ ADMINSTER BY SURGEON ONLY; Start 12/01/16 at 06:00; Stop 12/05/16 at 05:59 Bupivacaine HCl/ Epinephrine Bitart ([place] 0.25%/ Epi (Sdv) 30 ml) 20 ml DAILY@06 PRN INJ ADMINSTER BY SURGEON ONLY; Start 12/01/16 at 06:00; Stop 12/05 at 05:59 Naloxone HCl (Narcan) 0.2 mg Q2M PRN IV DECREASED REPIRATORY RATE; Start at 09:30 Morphine Sulfate (morphine) 4 mg Q6 PRN SC MODERATE PAIN LEVEL 4-6; Start 11/30 at 11:30 Acetaminophen/ Hydrocodone Bitart ([place] (10/325)) 1 tab Q4H PRN PO PAIN Last administered on 12/03/16 21:15; Admin Dose 1 TAB; Start 11/30/16 at 11:30 Atorvastatin Calcium (Lipitor) 20 mg QHS PO Last administered on 12/03/16 20: 49; Admin Dose 20 MG; Start 11/30/16 at 21:00 Fenofibrate (Tricor) 145 mg DAILY PO Last administered on 12/04/16 09:56; Admin Dose 145 MG; Start 12/01/16 at 09:00 Valsartan (Diovan) 160 mg DAILY PO Last administered on 12/04/16 09:56; Admin Dose 160 MG; Start 11/30/16 at 21:00 Tamsulosin HCl (Flomax) 0.4 mg HS PO Last administered on 12/03/16 20:49; Admin Dose 0.4 MG; Start 12/02/16 at 21:00 Metoprolol Tartrate (Lopressor) 12.5 mg BID PO Last administered on 12/04/16 09:56; Admin Dose 12.5 MG; Start 12/03/16 at 10:30 TOÑO DUKES MD Dec 04, 2016 10:15
[2016-12-04] MEDS ORDERED: FUROSEMIDE 20 MG TAB PO SCH (11:00)
--- NOTE | 2016-12-04 14:01 | RADRPT ---
Vent Rate: 83 bpm RR Interval: 0 msec CO Interval: 224 msec QRS Duration: 144 msec QT Interval: 398 msec QTC Interval: 467 msec P-R-T Pound: 52 - -22 - 31 degrees Sinus rhythm with 1st degree AV block with premature atrial complexes with aberrant conduction Right bundle branch block Septal infarct , age undetermined Abnormal ECG Electronically Signed By: Jovanni Price [id number]
[2016-12-04] MEDS: HYDROCODONE/APAP (10/325) TAB PO PRN (16:19)
--- NOTE | 2016-12-04 17:05 | CONS ---
Date/Time of Note Date/Time of Note DATE: 12/04/16 TIME: 17:01 Assessment/Plan Assessment/Plan Chief Complaint/Hosp Course Impression: 1- bradycardia- likely actually normal hr but pt with frequent bigeminy and thus hr erroneously reported as low. no graciela on tele 2- tachycardia- not captured on ekg, frequent pvcs on tele no arrhythmia 3- h/o of cad s/p remote PTCA - cont asa/statin 4- Moderate to severe - avoid aggressive tx of hypertension given fixed obstruction, risk for hypotension. does have mild congestion on exam, gentle diuresis. needs f/u as outpatient as likely will need valve replacement at some point 5- s/p R hip repair- cleared by ortho for d/c 6 HTN- elevated, will need additional therapy/titration Recommendations - add coreg 6.25mg po bid (d/c metoprolol), do not hold unless true bradycardia < 50bpm as confirmed by tele (pulse is not accurate due to frequent pvcs) - cont valsartan - cont asa/statin - gentle diuresis lasix 20mg daily - bladder scan with prn cath - strict i/o will follow, if bp control improved consider discharge tomorrow Problems: Consultation Date/Type/Reason Admit Date/Time Nov 30, 2016 at 05:34 Initial Consult Date 12/02/16 Type of Consultation: Cardiology Referring Provider: ARMOND HANSEN MD 24 HR Interval Summary Free Text/Dictation no acute events. pt reports improved urinary retention/flow. no cp/sob/ dizziness. no headache, blurred vision.. tele reviewed: nsr, frequent pvcs/bigeminy Detailed Summary Respiratory: no complaints Cardiovascular: no complaints Gastrointestinal: no complaints Exam/Review of Systems Vital Signs Vitals Vital Signs Date Time Temp Pulse Resp B/P Pulse Ox O2 Delivery O2 Flow Rate FiO2 12/04/16 16:32 81 12/04/16 15:11 98.0 20 170/78 95 12/03/16 23:08 Room Air 12/01/16 08:10 2.0 Intake and Output 12/03/16 12/03/16 12/04/16 15:00 23:00 07:00 Intake Total 740 ml Output Total 200 ml 1980 ml 150 ml Balance -200 ml -1240 ml -150 ml Exam Constitutional: alert, oriented Psych: nl mood/affect, no complaints Head: atraumatic, normocephalic Eyes: EOMI, nl conjunctiva, nl lids ENMT: nl external ears & nose, nl nasal mucosa & septum Neck: non-tender, supple, No jvd Respiratory: clear to auscultation, normal air movement Cardiovascular: regular rate and rhythm, systolic murmur, No S3, No edema, No irregular rhythm, No jugular venous distention (JVD) Gastrointestinal: non-tender, soft Musculoskeletal: nl extremities to inspection, other (R hip wound c/d/i), No muscle weakness Extremities: normal pulses 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, nl mental status, nl speech, nl strength Skin: nl turgor Results Result Diagram: 12/04/16 0650 12/03/16 0630 Results 24 hrs Laboratory Tests Test 12/04/16 06:50 Basophils # 0.0 Basophils % 0.4 Eosinophils # 0.2 Eosinophils % 1.8 Hematocrit 34.8 L Hemoglobin 12.2 L Lymphocytes # 3.5 H Lymphocytes % 29.2 Mean Corpuscular Hemoglobin 34.9 H Mean Corpuscular Hemoglobin Concent 34.9 Mean Corpuscular Volume 100.0 Mean Platelet Volume 9.2 Monocytes # 0.9 Monocytes % 7.5 Neutrophils # 7.3 Neutrophils % 61.1 Nucleated Red Blood Cells # 0.0 Nucleated Red Blood Cells % 0.0 Platelet Count 216 Red Blood Count 3.48 L Red Cell Distribution Width 14.0 White Blood Count 11.9 #H Medications Medications Current Medications Oxycodone HCl (Roxicodone) 20 mg Q3H PRN PO PAIN LEVEL 8-10; Start 12/01/16 at 09:00 Oxycodone HCl (Roxicodone) 10 mg Q3H PRN PO PAIN LEVEL 4-7 Last administered on 12/03/16 05:51; Admin Dose 10 MG; Start 12/01/16 at 09:00 Zolpidem Tartrate (Ambien) 5 mg HS PRN PO INSOMNIA Last administered on 22:47; Admin Dose 5 MG; Start 11/30/16 at 09:30 Aspirin (Ecotrin) 325 mg BID PO Last administered on 12/04/16 09:54; Admin Dose 325 MG; Start 12/01/16 at 09:00 Celecoxib (Celebrex) 200 mg BID PO Last administered on 12/04/16 09:54; Admin Dose 200 MG; Start 12/01/16 at 09:00 Pantoprazole (Protonix Tab) 40 mg DAILY@06 PO Last administered on 12/04/16 06 :05; Admin Dose 40 MG; Start 12/01/16 at 06:00 Docusate Sodium/ Ferrous Fumarate (Blank-Sequels) 1 tab BID PO Last administered on 12/04/16 09:56; Admin Dose 1 TAB; Start 12/01/16 at 09:00 Simethicone (Mylicon) 80 mg TID PRN PO DISTENSION/GAS/BLOATING Last administered on 12/01/16 19:52; Admin Dose 80 MG; Start 11/30/16 at 09:30 Senna/Docusate Sodium (Senokot-S) 2 tab BID PRN PO CONSTIPATION Last administered on 12/02/16 10:02; Admin Dose 2 TAB; Start 11/30/16 at 09:30 Magnesium Hydroxide (Milk Of Mag) 30 ml HS PRN PO CONSTIPATION; Start 11/30/16 at 09:30 Bisacodyl (Dulcolax Supp) 10 mg DAILY PRN [place] CONSTIPATION; Start 11/30/16 at 09 :30 Sodium Biphosphate/ Sodium Phosphate (Fleet Enema) 133 ml DAILY PRN [place] CONSTIPATION; Start 11/30/16 at 09:30 Diphenhydramine HCl (Benadryl) 25 mg Q4H PRN IM ITCHING OR RASH; Start at 15:00 Ketorolac Tromethamine (Toradol) 30 mg DAILY@06 PRN INJ ADMINSTER BY SURGEON ONLY; Start 12/01/16 at 06:00; Stop 12/05/16 at 05:59 Bupivacaine HCl/ Epinephrine Bitart ([place] 0.25%/ Epi (Sdv) 30 ml) 20 ml DAILY@06 PRN INJ ADMINSTER BY SURGEON ONLY; Start 12/01/16 at 06:00; Stop 12/05 at 05:59 Naloxone HCl (Narcan) 0.2 mg Q2M PRN IV DECREASED REPIRATORY RATE; Start at 09:30 Morphine Sulfate (morphine) 4 mg Q6 PRN SC MODERATE PAIN LEVEL 4-6; Start 1/25 /17 at 11:30 Acetaminophen/ Hydrocodone Bitart ([place] (10/325)) 1 tab Q4H PRN PO PAIN Last administered on 12/04/16 16:19; Admin Dose 1 TAB; Start 11/30/16 at 11:30 Atorvastatin Calcium (Lipitor) 20 mg QHS PO Last administered on 12/03/16 20: 49; Admin Dose 20 MG; Start 11/30/16 at 21:00 Fenofibrate (Tricor) 145 mg DAILY PO Last administered on 12/04/16 09:56; Admin Dose 145 MG; Start 12/01/16 at 09:00 Valsartan (Diovan) 160 mg DAILY PO Last administered on 12/04/16 09:56; Admin Dose 160 MG; Start 11/30/16 at 21:00 Tamsulosin HCl (Flomax) 0.4 mg HS PO Last administered on 12/03/16 20:49; Admin Dose 0.4 MG; Start 12/02/16 at 21:00 Furosemide (Lasix) 20 mg DAILY PO Last administered on 12/04/16 11:57; Admin Dose 20 MG; Start 12/04/16 at 11:00 Carvedilol (Coreg) 6.25 mg BID PO Last administered on 12/04/16 13:29; Admin Dose 6.25 MG; Start 12/04/16 at 13:15 Procedures Procedures dvt u/s images reviewed- no dvt WU LANCASTER Dec 04, 2016 17:05
[2016-12-04] MEDS: oxyCODONE 5 MG TAB PO PRN (18:39)
--- NOTE | 2016-12-04 20:28 | PN ---
DATE: 12/04/2016 SUBJECTIVE: Urinary retention. The patient, however, has been voiding, but he voids about 50 to 10 0 mL. Just right now his postvoid residual was about 349; therefore, I asked the nurse to do a stra ight cath on him. OBJECTIVE: VITAL SIGNS: His temperature is 98.0, pulse is 81, respirations 20, blood pressure 170/78. ABDOMEN: Soft. There is no abdominal mass palpable. LABORATORY DATA: His CBC shows a white count of 11.9, hemoglobin 12.2, hematocrit 34.8. The BUN is 42, creatinine is 1.33. The urine culture no growth after 48 hours. Pelvic ultrasound showed that the prevoid bladder volume was 302 mL. The patient voided and the postvoid residual was 249. The prostate was measured at 5.7 x 5.4 x 5.2 cm in size. The prostate volume, however, was not calculat ed, but with this size, the prostate is quite large. IMPRESSION: High postvoid bladder volume residual. RECOMMENDATION: To continue to monitor his postvoid residual and do a straight catheterization for a postvoid residual over 300. If he does not void, do the straight catheterization for a volume of over 500. Dictated By: SANDRA MOREIRA MD BB/QUYEN Conf#: [id number] DID#: [id number] CC: ARMOND HANSEN MD;*End*
[2016-12-04] MEDS: ZOLPIDEM 5 MG TAB PO PRN (21:20)
[2016-12-04] MEDS: ATORVASTATIN 20 MG TAB PO SCH (21:20)
[2016-12-04] MEDS: TAMSULOSIN (SR) 0.4 MG CAP PO SCH (21:21)
[2016-12-05] VITALS (8 sets, daily range): BP systolic 111–172; BP diastolic 54–92; PULSE 80–98; RESP 18–21
[2016-12-05] MEDS: PANTOPRAZOLE (EC) 40 MG TAB PO SCH (06:34)
[2016-12-05 07:08] LABS: BASOPHILS % 0.3 % (0.0-2.0); EOSINOPHILS # 0.4 10^3/ul (0.0-0.5); EOSINOPHILS % 4.7 % (0.0-7.0); HEMOGLOBIN 11.5 g/dl (14.0-18.0); LYMPHOCYTES # 2.1 10^3/ul (0.8-2.9); MEAN CORPUSCULAR HEMOGLOBIN 34.6 pg (29.0-33.0); MEAN CORPUSCULAR HGB CONC 34.9 g/dl (32.0-37.0); MEAN CORPUSCULAR VOLUME 99.2 fl (82.0-101.0); MEAN PLATELET VOLUME 9.4 fl (7.4-10.4); MONOCYTE # 0.6 10^3/ul (0.3-0.9); MONOCYTES % 6.6 % (0.0-11.0); NEUTROPHILS % 65.4 % (39.0-77.0); PLATELET COUNT 218 10^3/UL (140-440); RED BLOOD COUNT 3.33 10^6/ul (4.70-6.10); RED CELL DISTRIBUTION WIDTH 14.1 % (11.5-14.5); UNCORRECTED WBC 9.1 10^3/ul (4.8-10.8); WHITE BLOOD COUNT 9.1 10^3/ul (4.8-10.8)
[2016-12-05 07:11] LABS: CONDITION 1
--- NOTE | 2016-12-05 07:39 | PN ---
Date/Time of Note Date/Time of Note DATE: 12/05/16 TIME: 07:33 Assessment/Plan VTE Prophylaxis VTE Prophylaxis Intervention: ambulation, SCD's, other (ASA 325 mg twice daily) Lines/Catheters IV Catheter Type (from Nrsg): Saline Lock Walker in Place (from Nrsg): No Assessment/Plan Assessment/Plan Pain medications as needed Dress change performed today Patient was provided with Tegaderm to take home yesterday and states that he is still in possession and instructions were reiterated in regards to application of Tegaderm with pad over wound prior to showering at home. Continue DVT prophylaxis after discharge with ASA 325 mg twice daily for 6 weeks. Continue with home health Patient will continue working with case management for home health aide and [facility]. We will follow-up in 3 weeks in office for repeat evaluation. Hip precautions discussed with patient Discharge paperwork will be filled out today Subjective 24 Hr Interval Summary Postop day 5 status post right total hip revision. Patient's pain continues to be well controlled to the right hip. Patient continues walking as he is able to go back and forth down the hallway. Spoke with Dr. Pham today who states that patient has been stable and will be discharged later pending cardiology clearance. Exam/Review of Systems Vital Signs Vitals Vital Signs Date Time Temp Pulse Resp B/P Pulse Ox O2 Delivery O2 Flow Rate FiO2 12/05/16 07:07 97.9 82 18 147/69 94 12/03/16 23:08 Room Air 12/01/16 08:10 2.0 Intake and Output 12/04/16 12/04/16 12/05/16 15:00 23:00 07:00 Intake Total 500 ml 240 ml Output Total 1070 ml 150 ml Balance -570 ml 90 ml Exam Free Text/Dictation Patient is able to flex the right hip up to 70. No pain on exam today. No tenderness to palpation. Wound is clean dry and intact with ant intact. 2 + pedal pulses to posterior tibialis and dorsalis pedis. No calf pain/negative Homans sign. Results Result Diagram: 12/05/16 0545 12/03/16 0630 AZEEM QUINN PA-C Dec 05, 2016 07:39
--- NOTE | 2016-12-05 07:56 | CONS ---
Date/Time of Note Date/Time of Note DATE: 12/05/16 TIME: 07:54 Assessment/Plan Assessment/Plan Additional Assessment/Plan 1. Stable post op right hip replacement. 2. 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 Known Aortic Stenosis 4. Bladder dysfx post op with acceptable post void residuals 5. Will need to cont coreg and flomax, i stopped lasix 6. Can dc pending card follow up Consultation Date/Type/Reason Admit Date/Time Nov 30, 2016 at 05:34 Type of Consultation: Cardiology Referring Provider: ARMOND HANSEN MD Detailed Summary Respiratory: No shortness of breath Cardiovascular: No chest pain Gastrointestinal: no complaints Genitourinary: no complaints Musculoskeletal: bone/joint pain (mild right hip pain) Exam/Review of Systems Vital Signs Vitals Vital Signs Date Time Temp Pulse Resp B/P Pulse Ox O2 Delivery O2 Flow Rate FiO2 12/05/16 07:07 97.9 82 18 147/69 94 12/03/16 23:08 Room Air 12/01/16 08:10 2.0 Intake and Output 12/04/16 12/04/16 12/05/16 15:00 23:00 07:00 Intake Total 500 ml 240 ml Output Total 1070 ml 150 ml Balance -570 ml 90 ml Exam Neck: No jvd Respiratory: clear to auscultation Cardiovascular: No irregular rhythm (1-2/6 syst m) Gastrointestinal: soft Extremities: No edema (and no calf tend) Results Result Diagram: 12/05/16 0545 12/03/16 0630 Results 24 hrs Laboratory Tests Test 12/05/16 05:45 B-Type Natriuretic Peptide 2060 H Basophils # 0.0 Basophils % 0.3 Eosinophils # 0.4 Eosinophils % 4.7 Hematocrit 33.0 L Hemoglobin 11.5 L Lymphocytes # 2.1 Lymphocytes % 23.0 Mean Corpuscular Hemoglobin 34.6 H Mean Corpuscular Hemoglobin Concent 34.9 Mean Corpuscular Volume 99.2 Mean Platelet Volume 9.4 Monocytes # 0.6 Monocytes % 6.6 Neutrophils # 6.0 Neutrophils % 65.4 Nucleated Red Blood Cells # 0.0 Nucleated Red Blood Cells % 0.0 Platelet Count 218 Red Blood Count 3.33 L Red Cell Distribution Width 14.1 White Blood Count 9.1 # Medications Medications Current Medications Oxycodone HCl (Roxicodone) 20 mg Q3H PRN PO PAIN LEVEL 8-10 Last administered on 12/05/16 06:34; Admin Dose 20 MG; Start 12/01/16 at 09:00 Oxycodone HCl (Roxicodone) 10 mg Q3H PRN PO PAIN LEVEL 4-7 Last administered on 12/04/16 18:39; Admin Dose 10 MG; Start 12/01/16 at 09:00 Zolpidem Tartrate (Ambien) 5 mg HS PRN PO INSOMNIA Last administered on 21:20; Admin Dose 5 MG; Start 11/30/16 at 09:30 Aspirin (Ecotrin) 325 mg BID PO Last administered on 12/04/16 21:20; Admin Dose 325 MG; Start 12/01/16 at 09:00 Celecoxib (Celebrex) 200 mg BID PO Last administered on 12/04/16 21:21; Admin Dose 200 MG; Start 12/01/16 at 09:00 Pantoprazole (Protonix Tab) 40 mg DAILY@06 PO Last administered on 12/05/16 06 :34; Admin Dose 40 MG; Start 12/01/16 at 06:00 Docusate Sodium/ Ferrous Fumarate (Blank-Sequels) 1 tab BID PO Last administered on 12/04/16 21:20; Admin Dose 1 TAB; Start 12/01/16 at 09:00 Simethicone (Mylicon) 80 mg TID PRN PO DISTENSION/GAS/BLOATING Last administered on 12/01/16 19:52; Admin Dose 80 MG; Start 11/30/16 at 09:30 Senna/Docusate Sodium (Senokot-S) 2 tab BID PRN PO CONSTIPATION Last administered on 12/02/16 10:02; Admin Dose 2 TAB; Start 11/30/16 at 09:30 Magnesium Hydroxide (Milk Of Mag) 30 ml HS PRN PO CONSTIPATION; Start 11/30/16 at 09:30 Bisacodyl (Dulcolax Supp) 10 mg DAILY PRN [place] CONSTIPATION; Start 11/30/16 at 09 :30 Sodium Biphosphate/ Sodium Phosphate (Fleet Enema) 133 ml DAILY PRN [place] CONSTIPATION; Start 11/30/16 at 09:30 Diphenhydramine HCl (Benadryl) 25 mg Q4H PRN IM ITCHING OR RASH; Start at 15:00 Naloxone HCl (Narcan) 0.2 mg Q2M PRN IV DECREASED REPIRATORY RATE; Start at 09:30 Morphine Sulfate (morphine) 4 mg Q6 PRN [place] MODERATE PAIN LEVEL 4-6; Start 11/30 at 11:30 Acetaminophen/ Hydrocodone Bitart ([place] (10/325)) 1 tab Q4H PRN PO PAIN Last administered on 12/04/16 16:19; Admin Dose 1 TAB; Start 11/30/16 at 11:30 Atorvastatin Calcium (Lipitor) 20 mg QHS PO Last administered on 12/04/16 21: 20; Admin Dose 20 MG; Start 11/30/16 at 21:00 Fenofibrate (Tricor) 145 mg DAILY PO Last administered on 12/04/16 09:56; Admin Dose 145 MG; Start 12/01/16 at 09:00 Valsartan (Diovan) 160 mg DAILY PO Last administered on 12/04/16 09:56; Admin Dose 160 MG; Start 11/30/16 at 21:00 Tamsulosin HCl (Flomax) 0.4 mg HS PO Last administered on 12/04/16 21:21; Admin Dose 0.4 MG; Start 12/02/16 at 21:00 Carvedilol (Coreg) 6.25 mg BID PO Last administered on 12/04/16 21:22; Admin Dose 6.25 MG; Start 12/04/16 at 13:15 CHASITY FRY MD Dec 05, 2016 07:56
[2016-12-05] MEDS: FERROUS FUMARATE (SR) TAB PO SCH (08:30)
[2016-12-05] MEDS: CELECOXIB 200 MG CAP PO SCH (08:30)
[2016-12-05] MEDS: ASPIRIN (EC) 325 MG TAB PO SCH (08:30)
[2016-12-05] MEDS: FENOFIBRATE 145 MG TAB PO SCH (08:31)
[2016-12-05] MEDS: VALSARTAN 160 MG TAB PO SCH ×2 (08:34→09:20)
[2016-12-05 08:37] LABS: POTASSIUM 4.9 mmol/L (3.5-5.1)
[2016-12-05 08:39] LABS: CREATININE 1.1 mg/dl (0.61-1.24)
[2016-12-05 08:40] LABS: CALCIUM 8.7 mg/dl (8.4-10.2)
[2016-12-05 08:41] LABS: MAGNESIUM 1.7 mg/dl (1.7-2.5)
[2016-12-05] MEDS ORDERED: MAGNESIUM SULFATE 2 GM/50 ML 50 ML IVPB ONE (10:00)
--- NOTE | 2016-12-05 10:08 | PN ---
DATE: 12/05/2016 SUBJECTIVE: High postvoid residual and urinary retention. HISTORY OF PRESENT ILLNESS: The patient has been voiding about 100 to 150 mL each time and his post void residual has been high, between 100 to about 300 mL. Last night he voided only 50 mL and his P VR was 379, but he refused the straight catheterization. Again, this morning he did void about 100 and his postvoid residual was 239. This morning, he voided 100, PVR 276 also, and the latest one hi s PVR about 125 mL. IMPRESSION: High postvoid residual. The patient does have an enlarged prostate is on Flomax. We s de leon continue that and continue to monitor his postvoid residual. He is going to be discharged and he could follow up with his urologist, Dr. Araujo. He is instructed to try to urinate every 2 hours, and to not wait too long for him to urinate. Dictated By: SANDRA REESE/QUYEN Conf#: [id number] DID#: [id number]
[2016-12-05] MEDS: TAMSULOSIN (SR) 0.4 MG CAP PO SCH (12:39)
[2016-12-05] MEDS: HYDROCODONE/APAP (10/325) TAB PO PRN (13:10)
--- NOTE | 2016-12-05 13:54 | CONS ---
Date/Time of Note Date/Time of Note DATE: 12/05/16 TIME: 13:53 Assessment/Plan Assessment/Plan Chief Complaint/Hosp Course Impression: 1- bradycardia- likely actually normal hr but pt with frequent bigeminy and thus hr erroneously reported as low. no graciela on tele 2- tachycardia- not captured on ekg, frequent pvcs on tele no arrhythmia 3- h/o of cad s/p remote PTCA - cont asa/statin 4- Moderate to severe - avoid aggressive tx of hypertension given fixed obstruction, risk for hypotension. does have mild congestion on exam, gentle diuresis. needs f/u as outpatient as likely will need valve replacement at some point 5- s/p R hip repair- cleared by ortho for d/c 6 HTN- elevated, will need additional therapy/titration Recommendations - cont coreg 6.25mg po bid - cont valsartan 160mg po bid - cont asa/statin - ok to d/c lasix ok to d/c home, will try to arrange outpt f/u with aortic valve disease evaluation. Problems: Consultation Date/Type/Reason Admit Date/Time Nov 30, 2016 at 05:34 Initial Consult Date 12/02/16 Type of Consultation: Cardiology Referring Provider: ARMOND HANSEN MD 24 HR Interval Summary Free Text/Dictation no acute events. pt denies any cp, sob, dizziness, headache, n/v. bp improved this am tele reviewed: NSR, frequent pvcs, no arrhythmia Detailed Summary Respiratory: no complaints Cardiovascular: no complaints Gastrointestinal: no complaints Exam/Review of Systems Vital Signs Vitals Vital Signs Date Time Temp Pulse Resp B/P Pulse Ox O2 Delivery O2 Flow Rate FiO2 12/05/16 12:23 86 12/05/16 11:08 97.8 18 172/92 95 12/03/16 23:08 Room Air 12/01/16 08:10 2.0 Intake and Output 12/04/16 12/04/16 12/05/16 15:00 23:00 07:00 Intake Total 500 ml 240 ml Output Total 1070 ml 150 ml Balance -570 ml 90 ml Exam Constitutional: alert, oriented Psych: nl mood/affect, no complaints Head: atraumatic, normocephalic Eyes: EOMI, nl conjunctiva, nl lids ENMT: nl external ears & nose, nl nasal mucosa & septum Neck: non-tender, supple, No jvd Respiratory: clear to auscultation, normal air movement Cardiovascular: regular rate and rhythm, systolic murmur, No S3, No edema, No irregular rhythm, No jugular venous distention (JVD) Gastrointestinal: non-tender, soft Musculoskeletal: nl extremities to inspection, other (R hip wound c/d/i), No muscle weakness Extremities: normal pulses Neurological: 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-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 intact, nl mental status, nl speech, nl strength Skin: nl turgor Results Result Diagram: 12/05/1654412/05/16544 Results 24 hrs Laboratory Tests Test 12/05/16 05:45 Anion Gap 15 B-Type Natriuretic Peptide 2060 H Basophils # 0.0 Basophils % 0.3 Blood Urea Nitrogen 38 H Calcium Level 8.7 Carbon Dioxide Level 27 Chloride Level 105 Creatinine 1.10 Eosinophils # 0.4 Eosinophils % 4.7 Glucose Level 98 Hematocrit 33.0 L Hemoglobin 11.5 L Lymphocytes # 2.1 Lymphocytes % 23.0 Magnesium Level 1.7 Mean Corpuscular Hemoglobin 34.6 H Mean Corpuscular Hemoglobin Concent 34.9 Mean Corpuscular Volume 99.2 Mean Platelet Volume 9.4 Monocytes # 0.6 Monocytes % 6.6 Neutrophils # 6.0 Neutrophils % 65.4 Nucleated Red Blood Cells # 0.0 Nucleated Red Blood Cells % 0.0 Platelet Count 218 Potassium Level 4.9 Red Blood Count 3.33 L Red Cell Distribution Width 14.1 Sodium Level 142 White Blood Count 9.1 # Medications Medications Current Medications Oxycodone HCl (Roxicodone) 20 mg Q3H PRN PO PAIN LEVEL 8-10 Last administered on 12/05/16 06:34; Admin Dose 20 MG; Start 12/01/16 at 09:00 Oxycodone HCl (Roxicodone) 10 mg Q3H PRN PO PAIN LEVEL 4-7 Last administered on 12/04/16 18:39; Admin Dose 10 MG; Start 12/01/16 at 09:00 Zolpidem Tartrate (Ambien) 5 mg HS PRN PO INSOMNIA Last administered on 21:20; Admin Dose 5 MG; Start 11/30/16 at 09:30 Aspirin (Ecotrin) 325 mg BID PO Last administered on 12/05/16 08:30; Admin Dose 325 MG; Start 12/01/16 at 09:00 Celecoxib (Celebrex) 200 mg BID PO Last administered on 12/05/16 08:30; Admin Dose 200 MG; Start 12/01/16 at 09:00 Pantoprazole (Protonix Tab) 40 mg DAILY@06 PO Last administered on 12/05/16 06 :34; Admin Dose 40 MG; Start 12/01/16 at 06:00 Docusate Sodium/ Ferrous Fumarate (Blank-Sequels) 1 tab BID PO Last administered on 12/05/16 08:30; Admin Dose 1 TAB; Start 12/01/16 at 09:00 Simethicone (Mylicon) 80 mg TID PRN PO DISTENSION/GAS/BLOATING Last administered on 12/01/16 19:52; Admin Dose 80 MG; Start 11/30/16 at 09:30 Senna/Docusate Sodium (Senokot-S) 2 tab BID PRN PO CONSTIPATION Last administered on 12/02/16 10:02; Admin Dose 2 TAB; Start 11/30/16 at 09:30 Magnesium Hydroxide (Milk Of Mag) 30 ml HS PRN PO CONSTIPATION; Start 11/30/16 at 09:30 Bisacodyl (Dulcolax Supp) 10 mg DAILY PRN [place] CONSTIPATION; Start 11/30/16 at 09 :30 Sodium Biphosphate/ Sodium Phosphate (Fleet Enema) 133 ml DAILY PRN [place] CONSTIPATION; Start 11/30/16 at 09:30 Diphenhydramine HCl (Benadryl) 25 mg Q4H PRN IM ITCHING OR RASH; Start at 15:00 Naloxone HCl (Narcan) 0.2 mg Q2M PRN IV DECREASED REPIRATORY RATE; Start at 09:30 Morphine Sulfate (morphine) 4 mg Q6 PRN SC MODERATE PAIN LEVEL 4-6; Start 11/30 at 11:30 Acetaminophen/ Hydrocodone Bitart ([place] (10325)) 1 tab Q4H PRN PO PAIN Last administered on 12/05/16 13:10; Admin Dose 1 TAB; Start 11/30/16 at 11:30 Atorvastatin Calcium (Lipitor) 20 mg QHS PO Last administered on 12/04/16 21: 20; Admin Dose 20 MG; Start 11/30/16 at 21:00 Fenofibrate (Tricor) 145 mg DAILY PO Last administered on 12/05/16 08:31; Admin Dose 145 MG; Start 12/01/16 at 09:00 Valsartan (Diovan) 160 mg DAILY PO Last administered on 12/05/16 09:20; Admin Dose 160 MG; Start 11/30/16 at 21:00 Tamsulosin HCl (Flomax) 0.4 mg HS PO Last administered on 12/05/16 12:39; Admin Dose 0.4 MG; Start 12/02/16 at 21:00 Carvedilol (Coreg) 6.25 mg BID PO Last administered on 12/05/16 08:31; Admin Dose 6.25 MG; Start 12/04/16 at 13:15 WU LANCASTER Dec 05, 2016 13:54
--- NOTE | 2016-12-06 05:21 | DS ---
DATE OF ADMISSION: 11/30/2016 DATE OF DISCHARGE: 12/05/2016 MAIN COMPLAINT: Unstable right hip, status post total knee replacement. PREOPERATIVE DIAGNOSIS: Unstable right hip after previous knee replacement. POSTOPERATIVE DIAGNOSIS: Status post right total hip revision via posterior route. DISCHARGE DIAGNOSIS: Status post right total hip revision via route. HOSPITAL COURSE: On the day of admission, the patient underwent right total hip replacement revision surgery via the posterior route. INTRAOPERATIVE COMPLICATIONS: None. POSTOPERATIVE COMPLICATIONS: No postoperative complications from an orthopedic standpoint. The patient did, however, have unstable wide-ranging pulse rate, as well as blood pressure while an inpatient. Patient was monitored by Dr. Choi while in the hospital and, after the second day, the patient was cleared from an orthopedic standpoint, but transferred to the fifth floor telemetry unit for close monitoring regarding ongoing cardiac irregularities. Patient began gait training on the day of surgery. Denies any pain complaints after surgery. Pain has been well-controlled and patient denies any chest pain or difficulty breathing. On the second postoperative day, suction drain was removed. Pain cocktail given. Dressing changes were applied. The patient was walking up and down the hallways with no pain complaints and with assistance using front-wheeled walker. No signs of infection to the wound. Patient was transferred to the telemetry unit on the third postoperative day and monitored. Dressing changes were applied. The pain cocktail drains were removed on the second postoperative day, but the patient states that pain was well-controlled with as-needed pain medication. On the fourth postoperative day, the patient was continued with close monitoring by Dr. Choi due to unstable blood pressure and irregular pulse rates. EKG showing no acute events. On the fifth postoperative day, after discussion with Dr. Choi, patient was stable in regards to pulse rate and blood pressure. Discharged on fifth postoperative day after cardiac clearance. Discharge temperature 97.9. Discharge white blood cell count 9.1. Discharge hemoglobin 11.5. The patient was discharged home with arrangements via Case Management being made for home health aide. Patient will be seen in office in 3 weeks for followup status post surgery, but patient was made aware, should he experience any complications prior to followup , he may follow up at an earlier time for close monitoring, and he states understanding. Tegaderm dressing was provided for the patient today with strict instructions on how to keep wound dry for a minimum of 10 to 14 days/ until ant are removed from the wound. The patient states understanding and compliance. DISCHARGE MEDICATIONS: As per medication reconciliation form. Patient was also provided with postoperative pain medications at his preoperative visit and states that he is in possession of medication. DIET: Same as preadmission diet. Dictated By: AZEEM HANSEN MD, KP/QUYEN Conf#: [id number] DID#: [id number] [facility]
== END 2016-12-05 13:30 | disposition home health service (06) | DRG 468 ==
LOC: REC 11-30 05:34 → MS1 11-30 10:26 → TEL 12-02 11:30
PROC: 0SP909Z Removal of Liner from Right Hip Joint, Open Approach (ICD-10-PCS; 2016-11-30)
PROC: 0SUA09Z Supplement Right Hip Joint, Acetabular Surface with Liner, Open Approach (ICD-10-PCS; 2016-11-30)
PROC: 0SP90JZ Removal of Synthetic Substitute from Right Hip Joint, Open Approach (ICD-10-PCS; 2016-11-30)
PROC: 0SR902Z Replacement of Right Hip Joint with Metal on Polyethylene Synthetic Substitute, Open Approach (ICD-10-PCS; principal; 2016-11-30 07:00)
DX: T84.020A Dislocation of internal right hip prosthesis, initial encounter (principal); I35.0 Nonrheumatic aortic (valve) stenosis; Z96.643 Presence of artificial hip joint, bilateral; I49.8 Other specified cardiac arrhythmias; I10 Essential (primary) hypertension; I25.10 Atherosclerotic heart disease of native coronary artery without angina pectoris; E78.5 Hyperlipidemia, unspecified; R33.9 Retention of urine, unspecified; I49.9 Cardiac arrhythmia, unspecified; N40.0 Benign prostatic hyperplasia without lower urinary tract symptoms; Z80.9 Family history of malignant neoplasm, unspecified; Z79.82 Long term (current) use of aspirin; Z87.442 Personal history of urinary calculi; Z96.653 Presence of artificial knee joint, bilateral; Z87.19 Personal history of other diseases of the digestive system
CPT/HCPCS: 71010; 73500; 76856; 80048; 81001; 81003; 83735; 83880; 84100; 84443; 84484; 85025; 86850; 86900; 86901; 86920; 87070; 87075; 87081; 87086; 88300; 89051; 93005; 93306; 93923; 97110; 97116; 97163; 97166; 97530; J1940; J0131; J0171; J0330; J0360; J0690; J0735; J1100; J1170; J1885; J2175; J2250; J2270; J2274; J2405; J2710; J2795; J3010; J3370; J3475; J7120; J7121

== ENCOUNTER → 2016-11-29 | Outpatient (CLI) | payer MEDICARE, OTHER ==
[~2016-11-29] MED LIST changes: +ASPI325T32 PO; +ATOR20TA38 PO; +DUR75P TD; +VALS160T20 PO; +ZOLP5TAB PO
--- NOTE | 2016-11-30 07:09 | HKNOTE ---
DATE OF SERVICE: 11/29/2016 The patient comes in for preoperative evaluation. She is scheduled to have a partial revision of hi s right total hip replacement on 11/30/2016. He had been cleared by surgery by his environment friendly landscape designer, Dr. Nikhil clemens. Numerous questions were asked and answered. The nature of the captured socket was again d iscussed with him. He has not given any blood for autotransfusion. He understands the risks associ ated with using hospital blood. He is agreeable to using hospital blood if needed. He comes in wit h family members. Dictated By: ARMOND SUN/NTS Conf#: [id number] DID#: [id number]
== END | disposition home or self-care (01) ==
LOC: HKI 13:22
DX: Z01.818 Encounter for other preprocedural examination (principal)
CPT/HCPCS: G0463

== ENCOUNTER → 2016-12-20 | Outpatient (CLI) | payer MEDICARE, OTHER ==
[~2016-12-20] MED LIST changes: -AMLO1TAB12; -ASPI325T32 PO; -CRES10; -NEURONTIN PO
--- NOTE | 2016-12-20 17:48 | HKNOTE ---
DATE OF SERVICE: 12/20/2016 SUBJECTIVE: An 81-year-old male who presents today for postoperative visit regarding right total hip replacement revision surgery with replacement of femoral head and liner that was performed on 11/30/2016. Patient states that upon discharge about 4 days after discharge from hospital, he [facility] due to swelling throughout the right lower extremity. The venous Doppler was performed which was negative. The patient does not have a report/results on hand today. The patient lives in [place], [place], where availability/service is limited. He denies any chest pain, calf pain or shortness of breath. The patient continues with swelling and has been taking Lasix off and on that has been provided by his primary care provider. Patient confirms that he is not taking Lasix consistently on a daily basis. The patient states that he has had little to no therapy. With standing, he has pain that can range from a 5/10 on the pain scale, but states that he has not been standing much since the surgery. [place] remain intact to the wound. Has been having home health followup with the patient, but to take blood pressure. Home health has also been changing dressing. In regards to true pain to the right hip, patient denies any pain complaints outside of standing for prolonged amounts of time. OBJECTIVE: VITAL SIGNS: Blood pressure is 114/55, temperature is 97.6 degrees, pulse is 66 , respiratory rate 16, height is 5 feet 11 inches, weight is 185 pounds. PHYSICAL EXAMINATION: Gait is abnormal and front-wheeled walker is used for assisted ambulation. The patient denies any pain complaints with gait today. After removal of dressing, saavnnah are intact. Wound is clean, dry and intact with no signs of infection. No tenderness to palpation to the right hip, especially around wound site at the posterior hip region. There is 2+ edema throughout the right lower extremity. Negative Homans sign on exam. No calf pain. Normal sensory examination to light touch. There are 2+ pedal pulses at the good dorsalis pedis and posterior tibialis. The patient is able to sit with the hip at 90 degrees. PLAN: 1. Patient confirms that he will be able to provide documentation from [facility] in regards to copy of venous Doppler ultrasound. 2. The patient has discussed directly with Dr. Hansen today and Dr. Hansen recommends the patient have a daily dose of Lasix. The patient states that he is in possession of medication and will continue to follow with his PCP for monitoring of blood pressure while on Lasix. He is already taking hypertensive medications that his primary care physician is following up on. 3. Continue deep vein thrombosis prophylaxis with aspirin 325 mg. Staple removal performed today and Steri-Strips applied. No complications with staple removal. It was encouraged that patient weightbear and walk as much as possible as a method of physical therapy and he states understanding. The patient's and son also state understanding as they are his caregivers. 4. The patient will follow up at 6 weeks postop for repeat evaluation as well as x-rays. 5. Family made aware, however, if the patient should have any complications he may follow up sooner for immediate evaluation. Commuting is difficult for this particular patient, as he lives in [place], [place], which is several miles away. Seen with Dr. Hansen today. Dictated By: AZEEM KELLEY for ARMOND HANSEN MD, KP/QUYEN Conf#: [id number] DID#: [id number] MTDD
== END | disposition home or self-care (01) ==
LOC: HKI 14:13
DX: Z47.1 Aftercare following joint replacement surgery (principal); Z96.641 Presence of right artificial hip joint

== ENCOUNTER → 2017-01-10 | Outpatient (CLI) | payer MEDICARE, OTHER ==
--- NOTE | 2017-01-10 16:30 | PN ---
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 Patient denies any pain complaints of the right hip. Patient does experience weakness, primarily to the internal rotators of the right hip. Patient is ambulating with assisted ambulatory device of a front wheeled walker. He continues experiencing increased swelling to the right lower extremity. Patient presented to [facility] for repeat Doppler which was negative. Patient followed up with his PCP, Dr. Schmidt who has placed patient on Lasix 40 mg daily dose. PCP is also prescribed compression stockings bilaterally but patient has yet to lemon picker. Denies any pain complaints but does have occasional aching. Patient is now walking throughout the house and backyard without complication. Denies any fall since he was last seen. Patient states that he is very happy postoperatively as he is experiencing no pain complaints and has increased functionality compared to activity prior to surgery. Review of Systems Const: No Fever, no chills, no Fatigue, normal appetite, no diaphoresis. Ext: Right lower extremity edema, no pain, no ulcer, moderate weakness. Physical Exam General Appearance: well-developed, well-nourished, in no acute distress. Right hip: -Patient is ambulating with assistance using front wheeled walker. Slight limp. -Patient ambulates with leg in external rotation. -Well-healed surgical scarring. -No tenderness to palpation on the right hip. -While lying supine, patient is able to flex the hip actively up to 80. Passive flexion up to 120. Patient is able to achieve full extension. -4+/5 strength to the hip flexors and extensors. Decreased strength with internal rotation. Normal strength with external rotation. -Normal sensory examination to light touch throughout the right lower extremity. -Negative Homans sign. IMAGING: X-ray of the right hip performed on 01/10/2017 showing all components appearing well aligned, attached and integrated to the bone. No signs of any lucency between metal and bone. Allergies Coded Allergies: No Known Allergies (Verified Allergy, Mild, 11/30/16) Assessment/Plan * Home PT ordered today given that patient [place] in remote area and transportation is very difficult for him. Prescription faxed to home PT facility * Patient is already in possession of antibiotic card * Patient may discontinue DVT prophylaxis at this time * Patient may discontinue hip precautions at this time the patient made aware, no high intensity activity * At home exercise program discussed with patient and patient's and son. * Continue with PCP who is monitoring bilateral lower extremity edema with Lasix and bilateral compression stocking * Follow-up 4.5 months for repeat evaluation or sooner should there be any complication. Patient made aware that dental prophylaxis will be necessary prior to any dental procedure for the remainder of their lifetime. Patient is aware that they must contact their dentist prior to any procedure to inform them of previous joint replacement with prosthesis implant so appropriate antibiotic may be prescribed to lower risk of joint infection status post surgery. Card will also serve as confirmation should patient be traveling and have to go through security such as at an airport. Patient seen with Dr. Layne today who agrees with plan. Medications Home Meds Reported Medications Fentanyl Patch* (Duragesic Patch*) 75 Mcg/Hr Transdermal Patch, 1 PATCH TD Q72H , PATCH 11/30/16 Atorvastatin Calcium* (Atorvastatin Calcium*) 20 Mg Tablet, 20 MG PO QHS, #30 TAB 11/30/16 Zolpidem Tartrate* (Ambien*) 5 Mg Tablet, 5 MG PO QHS Y for INSOMNIA, #30 TAB 11/30/16 Valsartan* (Diovan*) 160 Mg Tablet, 160 MG PO DAILY, TAB 11/30/16 [Narco] No Conflict Check 06/10/10 Fenofibrate Nanocrystallized* (Tricor*) 145 Mg Tablet 06/10/10 AZEEM QUINN PA-C Jan 10, 2017 16:30
--- NOTE | 2017-01-10 17:50 | RADRPT ---
PROCEDURE: XR AP pelvis/right hip. CLINICAL INDICATION: Hip pain TECHNIQUE: AP pelvis/AP and lateral views of the right hip available for review. COMPARISON: 12/03/2016 FINDINGS: There is no change in the left total hip replacement. There is been a revised constrained right tot al hip replacement. There is normal mineralization, architecture and alignment. There is no evidence of loosening of th e prosthesis. No fractures, dislocation or osseous lesions are identified. The joints are unremark able. There are normal soft tissues. IMPRESSION: No change in left total hip replacement Revised constrained right total hip replacement. Otherwise unremarkable examination. RPTAT: HGDB .Sedrick Sanchez MD, MD Date Time Electronically viewed and signed by .Sedrick Sanchez MD, on 01/10/2017 17:49 .B/
== END | disposition home or self-care (01) ==
LOC: HKI 13:18
DX: Z47.1 Aftercare following joint replacement surgery (principal); Z96.641 Presence of right artificial hip joint
CPT/HCPCS: 73502

== ENCOUNTER → 2017-03-28 | Outpatient (CLI) | payer MEDICARE, OTHER ==
--- NOTE | 2017-03-28 15:41 | PN ---
Date/Time of Note Date/Time of Note DATE: 03/28/17 TIME: 15:33 Outpatient Progress Note Chief Complaint 5 month follow-up status post right total hip replacement revision. HPI 82-year-old male presents today for 4 month follow-up status post revision of right total hip replacement with instillation of captured socket acetabulum and new femoral head performed on 11/30/2016. Patient states that he has improved in regards to functionality of the right hip from prior to surgery. He still uses walker for assisted ambulation. Patient has stiffness and limited ability to perform adduction movement and also has some weakness. At the time status post surgery, multiple home physical therapy facilities closer to where patient lives in [place], [place] were called in an attempt to get approval for at home physical therapy due to limited resources in regards to transportation. Patient states that he has been doing at home therapy. He was also provided with outpatient PT form but had difficulty in regards to transportation at that time as there is limited resources where patient lives. Patient states that he has been doing better than he was prior to surgery but does still have limited activity but since the surgery, he has less pain complaints and no repeat dislocations. Although patient is very pleased status post surgery, he would like to initiate outpatient physical therapy as he does have resources now that can take him to his sessions in hopes to increase his range of motion in regards to adduction and improve his strength and functionality. Continues using walker although he feels that his right hip is strong he has weakness throughout his bilateral lower extremities. Patient also has chronic bilateral shoulder pain and he feels that when he is up and moving shoulder pain creates increased fatigue. also agrees with patient in regards to his complaints. Denies any falls since he was last seen. Review of Systems Const: No Fever, no chills, no Fatigue, normal appetite, no diaphoresis. Resp: No SOB, no wheezing, no chest pain. CV: No chest pain, no palpitaions, no TAYLOR. Physical Exam Blood pressure is 144/65, temperature is 98.3, pulse is 43, respiratory rate is 12, height is 5 foot 11 inches, weight is 185 pounds. General Appearance: well-developed, well-nourished, in no acute distress. Right hip: Patient is seated comfortably in chair. Foot is slightly externally rotated. Patient is able to flex additional 20 while being seated in chair. 4 +/5 strength on resistance with flexion. 5/5 strength on extension, abduction and adduction. Patient is able to adduct up to 0. Patient is able to abduct up to 30. Normal sensory examination to light touch. Negative Homans sign. Allergies Coded Allergies: No Known Allergies (Verified Allergy, Mild, 11/30/16) Assessment/Plan * Patient continues to do well. * Outpatient physical therapy prescription provided today. * Anti-inflammatories as needed. * Home exercise program encouraged and techniques were provided today in regards to patient education. * Follow-up in 2 months for six-month appointment for repeat evaluation and x- ray. * Patient, patient's and patient's son made aware that he may return sooner should he need any repeat evaluation for any concerns. * Patient is in possession of antibiotic card. Antibiotic card provided for patient. Patient made aware that dental prophylaxis will be necessary prior to any dental procedure for the remainder of their lifetime. Patient is aware that they must contact their dentist prior to any procedure to inform them of previous joint replacement with prosthesis implant so appropriate antibiotic may be prescribed to lower risk of joint infection status post surgery. Card will also serve as confirmation should patient be traveling and have to go through security such as at an airport. Dr. Layne was present for exam today and agrees with plan. Medications Home Meds Reported Medications Fentanyl Patch* (Duragesic Patch*) 75 Mcg/Hr Transdermal Patch, 1 PATCH TD Q72H , PATCH 11/30/16 Atorvastatin Calcium* (Atorvastatin Calcium*) 20 Mg Tablet, 20 MG PO QHS, #30 TAB 11/30/16 Zolpidem Tartrate* (Ambien*) 5 Mg Tablet, 5 MG PO QHS Y for INSOMNIA, #30 TAB 11/30/16 Valsartan* (Diovan*) 160 Mg Tablet, 160 MG PO DAILY, TAB 11/30/16 [Narco] No Conflict Check 06/10/10 Fenofibrate Nanocrystallized* (Tricor*) 145 Mg Tablet 06/10/10 AZEEM QUINN PA-C March 28, 2017 15:41
== END | disposition home or self-care (01) ==
LOC: HKI 13:59
DX: Z47.1 Aftercare following joint replacement surgery (principal); Z96.641 Presence of right artificial hip joint
CPT/HCPCS: G0463